=== PATIENT | female | born 1945 | race Caucasian/White ===

== ENCOUNTER 2022-07-28 10:46 | Day surgery (SDC) | payer OTHER ==
[2022-07-28 10:33] LABS: Hematocrit 31.2 % (36.0-45.0); MCV 94.8 fL (80-100); RBC Red Blood Cell Count 3.29 M/uL (3.86-4.86)
--- NOTE | 2022-07-28 10:47 | RAD REPORT ---
EXAM DESCRIPTION: RAD - Chest Pa And Lat (2 Views) - 07/28/2022 10:36 am CLINICAL HISTORY: pre op for surgery Chest pain. COMPARISON: Chest Pa And Lat (2 Views) dated 08/20/2021; Chest Single View dated 10/02/2016 TECHNIQUE: PA and lateral views of the chest were obtained. FINDINGS: The lungs are hyperexpanded compatible with COPD. The heart is upper limit of normal in si ze. No fracture or aggressive bony process. IMPRESSION: COPD without acute process identified. The USPSTF recommends annual screening for lung cancer with low-dose CT (LDCT) in adults aged 50 to 80 years who have a 20 pack-year smoking history and currently smoke or have quit within the past 15 years.
[2022-07-28 10:52] LABS: Potassium 4.2 mmol/L (3.5-5.1)
[2022-07-28] MEDS ORDERED: Ringers Lactate 1,000 ML IV ONE (11:09)
[2022-07-28 11:26] VITALS: O2SAT 100
[2022-07-28] MEDS ORDERED: LIDOCAINE 1% W/EPI 1:100,000 30 ML VIAL ONE (11:55)
[2022-07-28] MEDS ORDERED: CEFAZOLIN SODIUM 1 GM/VIAL ONE (12:33)
[2022-07-28] MEDS ORDERED: FENTANYL CITR 100 MCG/2 ML ONE (12:37)
[2022-07-28] MEDS ORDERED: propofoL 200 MG/20 ML VIAL IV ONE (12:38)
[2022-07-28] MEDS ORDERED: LIDOCAINE 2% MPF 5 ML VIAL ONE (12:38)
[2022-07-28] MEDS ORDERED: ONDANSETRON 4 MG/2 ML VIAL ONE (12:52)
[2022-07-28] MEDS ORDERED: dexAMETHasone 10 MG/ML VIAL ONE (12:54)
--- NOTE | 2022-07-28 13:24 | P.BOP ---
Preoperative diagnosis: temporal arteritis Postoperative diagnosis: same Primary procedure: Temporal artery biopsy Estimated blood loss: <10cc Specimen: artery Findings: as above Anesthesia: General Complications: None Transferred to: Recovery Room Condition: Good
[2022-07-28] MEDS: MEPERIDINE HCL 25 MG/ML SYR ONE ×2 (13:53→13:58)
[2022-07-28 15:10] VITALS: BP 151/72; TEMP 98.1
--- NOTE | 2022-07-28 22:53 | OP ---
Date of Procedure: 07/28/2022 Surgeon: Israel Mirza MD Preoperative Diagnosis: Temporal arteritis. Postoperative Diagnosis: Temporal arteritis. Procedure: Temporal artery biopsy. Anesthesia: General with local. Estimated Blood Loss: Less than 10 cc. Specimen: Artery. Anesthesia: General plus local. Indications: This is the case of a female sent to us by Dr. Miller, Ophthalmology, for temporal ar meri biopsy after onset of visual issues in the right side, tenderness over the temporal artery area. The patient fully explained the benefits, alternatives, and risks of a temporal artery biopsy which include, but not limited to infection, bleeding, damage to adjacent structures, anesthesia complicat ion, negative exploration, ND, and even . She also understands this may not relieve any symptom s. She might need more than one surgical intervention. We have booked this patient as soon as we pelaez ve her in our office, understanding the time constraint. Description Of Procedure: The patient was brought to the operating room, placed in supine position. Anesthesia was given without complication. The patient stated most of the symptoms are on the right side, and so we selected the right side, that she told me in the office and today, once again. Afte r anesthesia was done, then we proceeded to prep and drape the area in usual sterile fashion. We pro ceeded to also use 1% lidocaine over the area without any epinephrine. A Doppler was used to localiz e the artery. An incision was made over the artery on the skin and subcutaneous tissue with a sharp blade. The temporal artery was identified once again with the help of the Doppler in the superficial layers of the superficial temporal fascia. Blunt dissection was done with the help of a hemostat, wilberto barragan to the blood vessel. The dissection proceeded underneath the vessel with a hemostat passed b elow it. The vessel was isolated with the help of a 4-0 silk, passed around in the proximal and dist al portion of the isolated artery. We tied those. The artery was then ligated. We irrigated the ar ea. No bleeding. We proceeded to close the skin in a subcuticular fashion with 3-0 chromic and skin with Dermabond. The patient tolerated the procedure well. Patient was sent to recovery in stable c ondition. HM/MODL Voice ID: [id number] Report ID: [id number]
--- NOTE | 2022-07-28 22:53 | DS ---
Date of Discharge: 07/28/2022 Diagnosis: Temporal arteritis. Procedure: Right temporal artery biopsy. Disposition: Home. Activity: As tolerated. No heavy lifting. Followup: My office in 1 week. Call for appointment at [phone]. She was also advised to follow up with Dr. Miller as soon as possible. Instructions: Keep the area dry for 24 hours, then may take a shower. ROLANDA/ZACH Voice ID: [id number] Report ID: [id number]
--- NOTE | 2022-07-31 17:33 | EKG ---
Test Date: 2022-07-28 Test Time: 10:10:08 Industrial Property Appraiser: FLAQUITA MEASUREMENT RESULTS: Intervals: Rate: 84 GA: 190 QRSD: 94 QT: 346 QTc: 408 [place]: P: 36 GA: 190 QRS: 75 T: 53 INTERPRETIVE STATEMENTS: Normal sinus rhythm with sinus arrhythmia Normal ECG Compared to ECG 10/02/2016 04:57:47 No significant changes Electronically Signed On 07-31-22 17:28:40 RAIL ENGINEER by Ernst Mauro
== END 2022-07-28 14:55 | disposition home or self-care (01) ==
LOC: OR 10:46
PROVIDERS: ATTEND Surgery
PROC: 03BS0ZX Excision of Right Temporal Artery, Open Approach, Diagnostic (ICD-10-PCS; principal; 2022-07-28 12:15)
DX: I70.8 Atherosclerosis of other arteries (principal); E83.59 Other disorders of calcium metabolism; I10 Essential (primary) hypertension; E03.9 Hypothyroidism, unspecified; G91.9 Hydrocephalus, unspecified; Z85.3 Personal history of malignant neoplasm of breast
CPT/HCPCS: 93005; 85025; 80048; 36415; 88305; 71046; 37609; J2704; J2001; J3010; J1100; J2175; J7120; J2405; J0690

== ENCOUNTER 2023-06-20 15:38 | Inpatient (IN) | payer OTHER ==
--- OUTSIDE RECORDS SUMMARY | 2023-06-20 15:53 | XMS REPORT | Continuity of Care Document ---
:1945 Author Organization [facility] t Address [address] [facility]. [address] [place] [address] Care Team Providers Name Role Phone None, None Primary Care Physician Unavailable PHYLICIA PURDY Attending Clinician Unavailable , WAQAS BETTS Attending Clinician Unavailable JESSICA_Bita Attending Clinician Unavailable KATE RIVAS Attending Clinician Unavailable Kate Rivas MD Attending Clinician [phone] RONAL ANGEL F Attending Clinician Unavailable Jenny POSADA Folusho F Attending Clinician Cayla Flanagan RN Attending Clinician Unavailable Antoni Muniz DO Attending Clinician Zain Schaffer MD Attending Clinician ZAIN SCHAFFER Attending Clinician Unavailable Chastity Ramirez MD Attending Clinician Doctor Unassigned, [place] Attending Clinician Unavailable Kathleen Esparza RN Attending Clinician Unavailable Only, Ang Db Test Attending Clinician Unavailable Viki Israle Attending Clinician VIKI DARDEN Attending Clinician Unavailable JESSICA_[place]_Nereida_ Admitting Clinician Unavailable RONAL ANGEL Admitting Clinician Unavailable Zain Schaffer MD Admitting Clinician ZAIN SCHAFFER Admitting Clinician Unavailable Payers Payer Name Policy Type Policy Number Effective Date Expiration Date Sharad orozco [employer] MEDICARE PPO [id number] 2022 00:00:00 [place] B-[place]: [id number] 2012 [employer] 00:00:00 AETNA [id number] MEDICARE PART A [id number] 2012 \T\ B 00:00:00 [employer]ET[employer] INDEMNITY [id number] 2014 00:00:00 Problems Condition Condition Condition Status Onset Resolution Last Treating Co mments Source Name Details Category Date Date Treatment Clinician Date Malignant Malignant Disease Active 2022-08 [facility] neoplasm neoplasm 0-10 Health of breast of breast 00:00: 00 CSF leak CSF leak Disease Active 2022-08 [facility] 0-10 Health 00:00: 00 Diplopia Diplopia Disease Active 2022-08 [facility] 0-10 Health 00:00: 00 Hyperlipid Hyperlipid Disease Active 2022-08 U T emia emia 0-10 Health 00:00: 00 Hypertensi Hypertensi Disease Active 2022-08 U T on on 0-10 Health 00:00: 00 Hypothyroi Hypothyroi Disease Active 2022-08 U T dism dism 0-10 Health 00:00: 00 Unsteady Unsteady Disease Active 2022-08 [facility] gait gait 0-10 Health 00:00: 00 BODY WORK 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 TRIMMER BODY WORK AUTO TRIMMER Disease Active 2022-08 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 He alth operitonea operitonea 00:00: l) shunt l) shunt 00 status status Nonspecifi Nonspecifi Disease Active U T c abnormal c abnormal 02-27 He alth results of results of 00:00: function function 00 study of study of kidney kidney Proteinuri Proteinuri Disease Recurre [facility] a a nce Health 00:00: 00 COVID COVID Disease Active 2020-08 [facility] 2-03 Health 00:00: 00 SUBDURAL SUBDURAL Diagnosis Active 2016-10-02 Memoria HEMORRHAGE HEMORRHAGE 10-02 08:34:00 l Active 00:00: Glenvil 10/02/2016 00 [facility] TSDH,S/P TSDH,S/P Diagnosis Active 2017-10-06 Memoria FALL FALL 10-02 11:26:00 l Active 00:00: Glenvil 10/02/2016 00 [facility] Total knee Total knee Disease Active U T replacemen replacemen 4-18 He alth t status t status 00:00: 00 Chronic Chronic Disease Active [facility] pain of pain of 09-03 Health left knee left knee 00:00: 00 [id number]/622 Diagnosis Active 2010-082011-06-01 Memoria 3 BODY WORK AUTO TRIMMER SHUNT 23 BODY WORK AUTO TRIMMER 0-12 11:50:00 l PLACEMENT SHUNT 00:00: Glenvil PLACEMENT 00 Active 05/19/2011 [facility] [id number]/[id number] Diagnosis Active 2010-082011-06-02 Memoria 3 BODY WORK AUTO TRIMMER SHUNT 23 BODY WORK AUTO TRIMMER 0-12 09:21:00 l PLACEMENT, SHUNT 00:00: Manish nuñez POST-OP PLACEMENT, 00 POST-OP Active 05/19/2011 [facility] Breast Breast Problem Active 2011-06-04 Frankie farheen cancer cancer 08:22:59 l Active Ricardo Problem 06/04/2011 [facility] Hypertensi Hypertens Problem Active 2011-06-04 Memoria on ion Active 08:22:59 l Problem Ricardo 06/04/2011 [facility] BODY WORK AUTO TRIMMER shunt BODY WORK AUTO TRIMMER shunt Problem Active 2011-06-04 Memoria Active 08:22:59 l Problem Ricardo 06/04/2011 [facility] 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 Glenvil device device (physical (physical object) object) Active Problem 10/17/2016 [facility], OPID Ricardo 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 L 09:21:00 l AZUCENA HYDROCEPHA Manish n AZUCENA Active [place] TRAUM TRAUM Diagnosis Active 2017-10-06 Me moria SUBDR HEM SUBDR HEM 11:26:00 l W LOC OF W LOC OF Manish n UNSP UNSP DURATION, DURATION, Active [facility] Hydrocepha Hydroceph Problem Resolve 2016-10-17 Memhenok azucena alus d 03:39:15 l (disorder) (disorder) He rmann Resolved Problem 10/17/2016 [facility] MARIS Silva Osteoarthr Osteoarth Problem Resolve 2016-10-17 Memoria itis ritis d 03:39:15 l (disorder) (disorder) He rmann Resolved Problem 10/17/2016 [facility], OPID Glenvil Allergies, Adverse Reactions, Alerts This patient has no known allergies or adverse reactions. Social History Social Habit Start Date Stop Date Quantity Comments Source Sexual orientation [facility] Alcohol intake 2023-03-23 2023-03-23 Ex-drinker [facility] 00:00:00 00:00:00 (finding) History of Social 2023-03-23 2023-03-23 [facility] 00:00:00 00:00:00 Exposure to 2023-01-09 2023-01-19 Not sure [facility] SARS-CoV-2 (event) 00:00:00 11:01:00 Tobacco use and 2023-01-19 2023-01-19 Smokeless [facility] exposure 00:00:00 00:00:00 tobacco non-user Education 2021-07-10 2021-07-[address] [place] [address] 00:00:00 00:00:00 [facility] Social History 2016-10-02 2016-10-02 [facility] Amanda page 21:36:35 21:36:35 Sex [birth year] [facility] 00:00:00 00:00:00 Smoking Status Start Date Stop Date Source Never smoked tobacco [facility] Medications Ordered Filled Start Stop Current Ordering Indication Dosage Frequency Signature Comments Components Source Medication Medication Date Date Medication? Clinician (SIG) Name Name levothyroxi Yes [facility] ne 5-24 Health (Synthroid, 00:00: Levoxyl) 00 100 MCG tablet levothyroxi Yes [facility] ne 5-24 Health (Synthroid, 00:00: Levoxyl) 00 100 MCG tablet levothyroxi Yes [facility] ne 5-24 Health (Synthroid, 00:00: Levoxyl) 00 100 MCG tablet levothyroxi 0 Yes UT ne 12-07 Health (Synthroid, 00:00: Levoxyl) 88 00 MCG tablet lisinopril 0 Yes UT 5 MG tablet 12-07 Health 00:00: 00 levothyroxi 0 Yes UT ne 12-07 Health (Synthroid, 00:00: Levoxyl) 88 00 MCG tablet lisinopril 0 Yes UT 5 MG tablet 12-07 Health 00:00: 00 levothyroxi 0 Yes UT ne 12-07 Health (Synthroid, 00:00: Levoxyl) 88 00 MCG tablet lisinopril 0 Yes UT 5 MG tablet 12-07 Health 00:00: 00 traMADoL 50 Yes [id number] 50mg Take 1 Univ ers mg tablet 12-12 tablet by ity o f 00:00: mouth [place] 00 every 6 Medical (six) Branch hours as needed for Pain (scale 7-10). Indication s: acute pain naproxen Yes [id number] 500mg Take 1 Univers 500 mg 5-07 001242 tablet by ity of tablet 00:00: mouth 2 [place] 00 (two) Medical times Branch daily with meals. cholecalcif 2020-08 Yes [id number] 2000U Take 2 Univers ashleigh, 2-06 tablets by ity of vitamin D3, 00:00: mouth [place] 25 mcg 00 daily. Medical (1,000 Branch unit) tablet MULTIVITAMI 2020-08 Yes 1{tbl} Take 1 Tab Univers N WITH 2-05 by mouth ity of MINERALS 11:46: daily. [place] (MULTIVITAM 15 Medical IN & Branch MINERAL FORMULA ORAL) levothyroxi 2020-08 Yes 88ug Take 88 Uni vers ne 2-05 mcg by ity of (SYNTHROID) 11:46: mouth [place] 88 mcg 15 daily. Medical tablet Branch BETA-CAROTE 2020-08 Yes 1{tbl} Take 1 Un awilda NE,A, W-C & 2-05 tablet by ity of E/MIN 11:46: mouth [place] (VISION 15 daily. Medical ORAL) Branch cyanocobala 2020-08 Yes [id number] Inject 1 Univers min 1,000 2-05 mL SQ once ity of mcg/mL 00:00: daily x 5 [place] injection 00 days then Medic al once Branch weekly ondansetron 2020-08 Yes [id number] 4mg Take 1 Univers (ZOFRAN 2-05 tablet by ity of ODT) 4 mg 00:00: mouth [place] disintegrat 00 every 6 Medic al ing tablet (six) Branch hours as needed for Nausea and Vomiting (N/V). acidophilus 2020-08 Yes [id number] 1g Take 1 Univers 100 million 2-05 tablet by ity of cell tablet 00:00: mouth 2 [place] as 00 (two) Medical times Branch daily. Levetiracet Yes 500 mg = 1 Memoria am 500 MG 2-26 tab, PO, l Oral Tablet 16:31: BID, # 12 H ermann [Keppra] 50 tab, 0 Refill(s) Levetiracet No 500 mg = 1 Memoria am 500 MG 2-26 tab, PO, l Oral Tablet 16:30: BID, # 12 H ermann [Keppra] 00 tab, 0 Refill(s) Lisinopril No Notes: Memor ia 2-26 (Same as: l 15:00: Prinivil, Glenvil 00 Zestril) Thyroxine No Notes: Memori a 2-26 Take 1 l 12:30: hour Ricardo 00 before or 2 hours after meal; Enteral feeds may interefere with the absorption of this medication . (Same as:Synthro id) Sodium No 1 appl, Memoria Chloride 2-25 Route: l 0.111 23:00: NASAL, Ricardo MEQ/ML 00 TID, Drug Nasal [place] form: [[place] SOLN, brand of Start sodium date: chloride] 10/02/16 17:00:00 MAT REPAIRER, Duration: 30 day, Stop date: 11/01/16 13:00:00 CDT levothyroxi Yes 88 Memori a ne 88 mcg 2-25 microgram l (0.088 mg) 21:42: = 1 tab, Her merchant oral tablet 00 PO, Daily, 0 Refill(s) meloxicam Yes 7.5 mg = 1 Me moria 7.5 mg oral 2-25 tab, PO, l tablet 21:42: Daily, 0 Ricardo 00 Refill(s) lisinopril Yes 10 mg = 1 Me moria 10 mg oral 2-25 tab, PO, l tablet 21:42: Daily, 0 Refill(s) Oxymetazoli No Notes: Frankie farheen ne 2-25 (Same as: l hydrochlori 21:36: Afrin) Herm temo de 0.5 00 MG/ML Nasal [place] [Afrin] tramadol No 50 mg, Memoria hydrochlori 2-25 Route: PO, l de 50 MG 18:45: Drug form: Her merchant Oral Tablet 00 TAB, ONCE, Dosing Weight 106.364, kg, Priority: STAT, Start date: 10/02/16 12:45:00 MAT REPAIRER, Stop date: 10/02/16 12:45:00 MAT REPAIRER Saline No Notes: Memoria Flush 0.9% 2-25 (Same as: l 15:00: BD Posiflush) Levetiracet No Notes: Frankie farheen am 2-25 Same as l 15:00: Keppra Mix with 100 mL NS, LR or D5W MEDICATION WASTE Product Size: 500 mg Product Wasted: ___ mg sennosides, No Notes: Frankie farheen ASSISTED 2-25 (Same as: l 15:00: Senokot) Docusate No Notes: Memoria 2-25 (Same as: l 15:00: Colace) (Do Not Crush) Saline No Notes: Memoria Flush 0.9% 2-25 (Same as: l 13:09: BD Ricardo 00 Posiflush) Ondansetron No Notes: Frankie farheen 2-25 (Same as: l 13:09: Zofran) MEDICATION WASTE Product Size: 4 mg Product Wasted: ___ mg Bisacodyl No Notes: Memori a 2-25 (Same As: l 13:09: Dulcolax, Ricardo 00 Bisco-Lax) Sodium No 1,000 mL, Memori a Chloride 2-25 Rate: 75 l 0.154 13:09: ml/hr, Ricardo MEQ/ML 00 Infuse Injectable over: 13.3 Solution hr, Route: IV, Dosing Weight 106.364 kg, Total Volume: 1,000, Start date: 10/02/16 7:09:00 MAT REPAIRER, Duration: 30 day, Stop date: 11/01/16 7:08:00 CDT Acetaminoph No Notes: Do M emoria en 2-25 not exceed l 13:09: 4 gm/day. Ricardo (Same as: Tylenol) Acetaminoph No Notes: Frankie farheen en 325 MG / 2-25 (Same as: l Hydrocodone 13:09: Delevan Mica nn Bitartrate 00 325/5) Do 5 MG Oral not exceed Tablet 4gm/day of acetaminop hen. Acetaminoph No Notes: Do M emoria en 325 MG / 2-25 not exceed l Hydrocodone 13:09: 4gm/day of Ricardo Bitartrate 00 acetaminop 10 MG Oral hen. (Same Tablet as: Delevan 325/10) Keppra No 1,000 mg, Memori a 2-25 Route: IV, l 13:04: ONCE, Ricardo Dosing Weight 106.364, kg, Start date: 10/02/16 7:04:00 MAT REPAIRER, Stop date: 10/02/16 7:04:00 MAT REPAIRER lisinopril Yes 5mg Take 5 mg Un awilda (PRINIVIL,Z 9-19 by mouth ity of ESTRIL) 5 00:00: daily. [place] mg tablet 00 Medical Branch Diamox 2010-08 Lucero Browne 250 mg, 1 Kassandra ia Sequels 0-26 Sabino tab, l 14:00: Bonnen Route: PO, Mica nn 00 Drug form: TAB, Daily, Start date: 06/02/11 9:00:00, Duration: 30 day, Stop date: 07/01/11 9:00:00 Hemocyte 2010-08 Lucero Browne 1 tab, Memori a Plus 0-26 Sabino Route: PO, l 14:00: Bonnen Drug Form: Mica nn 00 TAB, Daily, Start date: 06/02/11 9:00:00, Duration: 30 day, Stop date: 07/01/11 9:00:00 Iron 2010-08 No Puneet Iron Memoria glycinate 0-26 Sabino glycinate l with folic 14:00: Bonnen with folic Ricardo acid 00 acid, 1 capsule, Route: PO, Daily, 06/02/11 9:00:00, Duration: 30 day, Stop date: 07/01/11 9:00:00 lisinopril 2010-08 No Puneet 20 mg, Frankie farheen 0-26 Sabino Route: PO, l 14:00: Bonnen Drug form: Mica nn 00 TAB, Daily, Start date: 06/02/11 9:00:00, Duration: 30 day, Stop date: 07/01/11 9:00:00 Prinivil 2010-08 No Puneet 20 mg, 1 Frankie farheen 0-26 Sabino tab, l 14:00: Bonnen Route: PO, Mica nn 00 Drug form: TAB, Daily, Start date: 06/02/11 9:00:00, Duration: 30 day, Stop date: 07/01/11 9:00:00 levothyroxi 2010-08 No Puneet 0.137 mg, Memoria ne 0-26 Sabino Route: PO, l 14:00: Bonnen Drug form: Mica nn 00 TAB, Daily, Start date: 06/02/11 9:00:00, Duration: 30 day, Stop date: 07/01/11 9:00:00 acetaZOLAMI 2010-08 No Puneet 250 mg, Me moria DE 0-26 Sabino Route: PO, l 14:00: Bonnen Drug form: Mica nn 00 TAB, Daily, Start date: 06/02/11 9:00:00, Duration: 30 day, Stop date: 07/01/11 9:00:00 Levothroid 2010-08 No Puneet 0.137 mg, M emoria 0-26 Sabino 1 tab, l 11:30: Bonnen Route: PO, Mica nn 00 Drug form: TAB, Q630AM, Start date: 06/02/11 6:30:00, Duration: 30 day, Stop date: 07/01/11 6:30:00 Zocor 2010-08 No Puneet 40 mg, 1 Memoria 0-26 Sabino tab, l 02:00: Bonnen Route: PO, Mica nn 00 Drug form: TAB, Bedtime, Start date: 06/01/11 21:00:00, Duration: 30 day, Stop date: 06/30/11 21:00:00 simvastatin 2010-08 No Puneet 40 mg, Mem oria 0-26 Sabino Route: PO, l 02:00: Bonnen Drug form: Mica nn 00 TAB, Bedtime, Start date: 06/01/11 21:00:00, Duration: 30 day, Stop date: 06/30/11 21:00:00 diphenhydrA 2010-08 No Puneet 25 mg, 1 M emoria MINE 25 mg 0-25 Sabino tab, l oral 21:26: Bonnen Route: PO, Mica nn tablet, 00 Drug form: disintegrat TAB, ing Bedtime, PRN Insomnia, Start date: 06/01/11 16:26:00, Duration: 30 day, Stop date: 07/01/11 16:25:00 Benadryl 2010-08 No Puneet 25 mg, 1 Frankie farheen 0-25 Sabino tab, l 21:00: Bonnen Route: PO, Mica nn 00 Drug form: TAB, PRN, PRN Insomnia, Start date: 06/01/11 16:00:00, Duration: 30 day, Stop date: 07/01/11 14:59:00 BD 2010-08 No Puneet 3 mL, Memoria Posiflush 0-25 Sabino Route: IV, l SF 21:00: Bonnen Drug Form: Mica nn 00 INJ, Q8H, Start date: 06/01/11 16:00:00, Duration: 30 day, Stop date: 07/01/11 8:00:00 Zofran 2010-08 No Puneet 10 mg, 5 Memori a 0-25 Sabino mL, Route: l 20:01: Bonnen IVPB, Q6H, Mica nn 00 PRN Nausea, Start date: 06/01/11 15:01:00, Duration: 30 day, Stop date: 07/01/11 15:00:00 acetaminoph 2010-08 No Puneet 2 tab, Mem oria en-hydrocod 0-25 Sabino Route: PO, l one 20:00: Bonnen Drug Form: Mica nn 00 TAB, Q4H, PRN Pain, Start date: 06/01/11 15:00:00, Duration: 30 day, Stop date: 07/01/11 14:59:00 morphine 2010-08 No Puneet 4 mg, 2 Memor ia Sulfate 0-25 Sabino mL, Route: l 20:00: Bonnen IVP, Drug Manish n 00 form: INJ, Q1H, PRN Pain, Start date: 06/01/11 15:00:00, Stop date: 06/03/11 14:59:00 morphine 2010-08 No Puneet 3 mg, 1.5 Mem oria Sulfate 0-25 Sabino mL, Route: l 19:59: Bonnen IVP, Drug Manish n 00 form: INJ, Q1H, PRN Pain, Start date: 06/01/11 14:59:00, Stop date: 06/03/11 14:58:00 BD 2010-08 No Puneet 3 mL, Memoria Posiflush 0-25 Sabino Route: IV, l SF 19:59: Bonnen Drug Form: Mica nn 00 INJ, PRN, PRN Line Flush, Start date: 06/01/11 14:59:00, Duration: 30 day, Stop date: 07/01/11 13:58:00 LR IV 1,000 2010-08 No Puneet 1,000 mL, Memoria mL 0-25 Sabino Rate: 75 l 19:30: Bonnen ml/hr, Glenvil 00 Infuse over: 13.3 hr, Route: IV, Total Volume: 1,000, Start date: 06/01/11 14:30:00, Duration: 30 day, Stop date: 07/01/11 14:29:00 Ancef 2010-08 No Puneet 1 gm, Memoria 0-25 Sabino Route: l 12:49: Bonnen IVPB, Ricardo 00 ONCE, Start date: 06/01/11 7:49:00, Duration: 1 doses or times, Stop date: 06/01/11 7:49:00 Lactated 2010-08 No Jake 1,000 mL, Mem oria Ringers IV 0-25 Catalan Rate: 75 l 1000 mL 12:49: ml/hr, Glenvil 00 Infuse over: 13.3 hr, Route: IV, Total Volume: 1,000, Start date: 06/01/11 7:49:00, Duration: 30 day, Stop date: 07/01/11 7:48:00 iron 2010-08 Yes iron Memoria glycinate 0-24 glycinate l with folic 19:36: with folic H ermann acid, 37 acid, vitamin vitamin, 1 capsule, PO, Daily, Substituti on Allowed diphenhydrA 2010-08 Yes 1 tab, PO, Memoria MINE 25 mg 0-24 PRN, 30 l oral tablet 19:35: tabManish 41 Insomnia, Substituti on Allowed, TAB aspirin 81 2010-08 Yes 1 tab, PO, M emoria mg tablet, 0-24 Daily, l enteric 19:34: PRN, 0 Ricardo coated 10 tab, headache, Substituti on Allowed, ECTAB Aleve 220 2010-08 Yes 2 tab, PO, Me moria mg oral 0-24 QID, PRN, l tablet 19:32: 60 Ricardo honeycutt 44 Headache, Substituti on Allowed, TAB acetaZOLAMI 2010-08 Yes 1 tab, PO, Memoria DE 250 mg 0-24 Daily, 30 l oral tablet 19:31: Manish honeycutt n 45 Substituti on Allowed, TAB lisinopril 2010-08 Yes 1 tab, PO, M emoria 20 mg oral 0-24 Daily, 30 l tablet 19:31: Ricardo honeycutt 25 Substituti on Allowed, TAB levothyroxi 2010-08 Yes 1 tab, PO, Memoria ne 137 mcg 0-24 Daily, 90 l (0.137 mg) 19:31: tabRicardo oral tablet 05 Substituti on Allowed, TAB simvastatin 2010-08 Yes 1 tab, PO, Memoria 40 mg oral 0-24 Bedtime, l tablet 19:30: 30 Ricardo honeycutt 42 Substituti on Allowed, TAB Vital Signs Vital Name Observation Time Observation Value Comments Source Systolic blood 2023-03-23 16:35:00 134 mm[Hg] [facility] pressure Diastolic blood 2023-03-23 16:35:00 79 mm[Hg] [facility] pressure Heart rate 2023-03-23 16:35:00 90 /min [facility] Body temperature 2023-03-23 16:35:00 35.94 [facility] Body height 2023-03-23 16:35:00 167.6 cm [facility] Body weight 2023-03-23 16:35:00 83.462 kg [facility] BMI 2023-03-23 16:35:00 29.70 kg/m2 [facility] Systolic blood 2023-01-19 16:44:00 151 mm[Hg] [facility] pressure Diastolic blood 2023-01-19 16:44:00 81 mm[Hg] [facility] pressure Heart rate 2023-01-19 16:44:00 100 /min [facility] Body temperature 2023-01-19 16:44:00 35.78 [facility] Body height 2023-01-19 16:44:00 167.6 cm [facility] Body weight 2023-01-19 16:44:00 83.462 kg [facility] BMI 2023-01-19 16:44:00 29.70 kg/m2 [facility] Body temperature 2021-12-29 15:13:00 36.28 [facility] Body height 2021-12-29 15:13:00 175.3 cm [facility] Body weight 2021-12-29 15:13:00 81.92 kg [facility] BMI 2021-12-29 15:13:00 26.67 kg/m2 [facility] Respitory Rate 2016-10-03 17:00:00 Memori al Ricardo Systolic (mm Hg) 2016-10-03 17:00:00 Frankie rial Ricardo Diastolic (mm Hg) 2016-10-03 17:00:00 Mem orial Glenvil Respitory Rate 2016-10-03 16:00:00 Memori al Glenvil Systolic (mm Hg) 2016-10-03 16:00:00 Frankie rial Ricardo Diastolic (mm Hg) 2016-10-03 16:00:00 Mem orial Glenvil Systolic (mm Hg) 2016-10-03 15:00:00 Frankie rial Ricardo Diastolic (mm Hg) 2016-10-03 15:00:00 Mem orial Glenvil Respitory Rate 2016-10-03 15:00:00 Memori al Ricardo Temperature Oral (F) 2016-10-03 13:00:00 97.9 F Memorial Ricardo Temperature Oral (F) 2016-10-03 10:00:00 97.9 F Memorial Ricardo Temperature Oral (F) 2016-10-03 06:00:00 97.0 F Memorial Ricardo BMI Calculated 2016-10-02 21:32:00 Memori al Ricardo Height 2016-10-02 21:32:00 175.26 cm Memorial Ricardo Weight 2016-10-02 21:32:00 Memorial Ricardo Height 2016-10-02 21:23:00 175.26 cm Memorial Glenvil Weight 2016-10-02 21:23:00 Memorial Glenvil BMI Calculated 2016-10-02 21:23:00 Memori al Ricardo Heart Rate 2016-10-02 12:24:00 Memorial Glenvil Diastolic (mm Hg) 2011-06-02 17:00:00 Mem orial Glenvil Systolic (mm Hg) 2011-06-02 17:00:00 Frankie rial Ricardo Respitory Rate 2011-06-02 17:00:00 Memori al Ricardo Heart Rate 2011-06-02 17:00:00 Memorial Ricardo Temperature Oral (F) 2011-06-02 17:00:00 99.0 F Memorial Ricardo Systolic (mm Hg) 2011-06-02 13:00:00 Frankie rial Glenvil Diastolic (mm Hg) 2011-06-02 13:00:00 Mem orial Ricardo Respitory Rate 2011-06-02 13:00:00 Memori al Glenvil Heart Rate 2011-06-02 13:00:00 Memorial Ricardo Temperature Oral (F) 2011-06-02 13:00:00 98.1 F Memorial Glenvil Diastolic (mm Hg) 2011-06-02 09:00:00 Mem orial Ricardo Systolic (mm Hg) 2011-06-02 09:00:00 Frankie rial Ricardo Respitory Rate 2011-06-02 09:00:00 Memori al Ricardo Heart Rate 2011-06-02 09:00:00 Memorial Ricardo Temperature Oral (F) 2011-06-02 09:00:00 98.6 F Memorial Ricardo Weight 2011-06-01 18:22:00 Memorial Ricardo Height 2011-06-01 18:22:00 175.26 cm Memorial Glenvil Weight 2011-05-31 19:38:00 Memorial Ricardo Height 2011-05-31 19:38:00 175.26 cm [facility] Procedures Procedure Date / Time Performing Source Performed Clinician OCT, OPTIC NERVE - OU - BOTH 2023-05-17 19:16:59 Critical access hospital EYES [facility] VISUAL FIELD - OU - 2023-05-17 19:16:58 Critical access hospital BOTH EYES [facility]re[facility] Ventriculoperitoneal 2010-08-08 00:00:00 Memoria l Glenvil shunt<sup>1</sup> Breast lumpectomy [facility] nn Encounters Start End Encounter Admission Attending Care Care Encounter Source Date/Time Date/Time Type Type Clinicians Facility Department ID 2023-01-19 Outpatient [facility] [id number] [place] 10:56:49 [id number] [facility] 2022-12-15 Outpatient [facility] [id number] [place] 10:12:56 [id number] [facility] 2022-12-01 Outpatient [facility] [id number] [place] 10:05:47 [id number] [facility] 2023-07-08 2023-07-08 Outpatient RAJWINDER, [facility] [id number] [place] 09:00:00 09:00:00 [facility] ATOMI 2023-05-17 2023-05-17 Outpatient [facility] [id number] [place] 13:45:00 13:45:00 Health 2023-05-17 2023-05-17 Outpatient [facility] [id number] [place] 13:20:00 13:20:00 Health 2023-05-17 2023-05-17 Office RAJWINDER, LEONARD 6400 [id number] [place] 13:00:00 13:00:00 Visit [facility] [address] [facility] [id number] Health ATOMI [id number] 2023-03-23 2023-03-23 Office WAQAS OROURKE UTP 6400 [id number] [place] 11:00:00 11:00:[address] [id number] Health [id number] 2023-01-27 2023-01-27 Outpatient MHIE MHIE [id number] Memoria 11:45:00 11:45:00 03 mitch Silva 2023-01-19 2023-01-19 Office DayWaqas 6400 [id number] [place] 11:15:00 12:46:09 Visit Hossein [place] [id number] [facility] [id number] 2023-01-11 2023-01-11 Outpatient FOG_Mathews AOSM AOSM [id number] Yanet 00:00:00 00:00:00 _Nereida_MD [id number] [facility] 2023-01-07 2023-01-07 Outpatient FOG_Mathews AOSM AOSM [id number] Yanet 00:00:00 00:00:00 _Nereida_MD [id number] Orth ope dic Sports Medicin e 2022-12-22 2022-12-22 Outpatient DAY, WAQAS [facility] [id number] [place] 16:00:00 16:00:00 Health 2022-11-26 2022-11-26 Outpatient MHIE MHIE [id number] Memoria 10:45:00 10:45:00 02 mitch Silva 2022-10-15 2022-10-15 Outpatient FOG_Mathews AOSM AOSM [id number] Yanet 00:00:00 00:00:00 _Nereida_MD [id number] Orth ope dic Sports Medicin e 2022-10-13 2022-10-13 Outpatient MHIE MHIE [id number] Memoria 11:15:00 11:15:00 01 mitch Silva 2022-09-01 2022-09-01 Outpatient MHIE MHIE [id number] Memoria 11:15:00 11:15:00 00 mitch Silva 2021-12-29 2021-12-29 [facility] [id number] [facility] 10:05:39 23:59:00 KATE kilpatrick [facility] 2021-12-29 2021-12-29 [facility] [id number] [facility] 10:05:00 23:59:00 Encounter Kate SPECIALTY [id number] ity of [facility] [id number] [facility] AT [id number] Nv ayleen HERNANDEZ 809 [facility] 2021-12-29 2021-12-29 Outpatient R [facility] [id number] Univers 10:15:00 10:56:37 KATE ity [facility] 2021-12-29 2021-12-29 Office [facility] [id number] [facility] 10:15:00 10:56:37 Visit Kate SPECIALTY [id number] ity [place] [id number] [place] [address] AT [phone] Nv ayleen HERNANDEZ 198 [facility] 2021-12-15 2021-12-15 [facility] [id number] Univers 10:00:00 10:08:23 KATE ity of [facility] 2021-12-15 2021-12-15 Office [facility] [id number] Univers 10:00:00 10:08:23 Visit Kate SPECIALTY 350.1.13.10 ity [facility] 4.2.7.2.686 [facility] AT [phone] Nv ayleen HERNANDEZ 198 [facility] 2021-12-12 2021-12-12 [facility] [id number] Univers 18:19:00 21:09:00 FOLUSHO ity of [facility] 2021-12-12 2021-12-12 Emergency [facility] [id number] Univers 18:19:00 21:09:00 Ronal SHIN 350.1.13.10 ity [facility] 4.2.7.2.686 [facility] [phone] [facility] [address] [place] 2021-12-12 2021-12-12 Emergency [facility] [id number] Univers 18:19:00 21:09:00 FOLUSHO ity of [facility] 2021-07-14 2021-07-14 Transition JOSE LUIS Flanagan [id number] Univers 00:00:00 00:00:00 of Care Cayla HIRSCH 350.1.13.10 it [place] [phone] [facility] [address] 2021-07-10 2021-07-12 Hospital Antoni Muniz [facility] 1.2.840.1 [id number] Univers 15:51:00 10:50:00 Encounter DwightguidoFaithrubina SHIN 350.1.13.10 [place] [phone] [facility] [address] [place] 2021-07-10 2021-07-12 Inpatient X KARIME [facility] RINA [id number] Univers 15:51:00 10:50:00 ZAIN itpablo [facility] 2021-07-10 2021-07-10 Telephone James [facility] [id number] Univers 00:00:00 00:00:00 Chastity HEALTH 350.1.13.10 it y of [place] 4.2.7.2.686 Seamus as LONG?BLEA [phone] [address] MEDICAL OFFICE BUILDING 2021-07-10 2021-07-10 Orders Doctor GEOFF 1.2.840.114 [id number] Univers 00:00:00 00:00:00 Only Unassigned, ABBY 350.1.13.10 ity of [place] [facility] 4.2.7.2.686 Se[place] as [phone] [facility] [address] 2021-07-09 2021-07-09 Telephone GEOFF Esparza [id number] Univers 00:00:00 00:00:00 Kathleen MORA 350.1.13.10 it y of [facility] 4.2.7.2.686 [place] as [phone] [facility] [address] 2021-07-08 2021-07-08 Laboratory Only, Ang Db Test [facility] 1.2.8 40.114 [id number] Univers 17:22:42 17:37:42 Only Viki Darden [facility] 350.1.13.10 itGavino 4.2.7.2.686 [place] as LONG?BLEA [phone] Nv ayleen [address] MEDICAL OFFICE BUILDING 2021-07-08 2021-07-08 Outpatient R [facility] [id number] Univers 17:15:00 17:36:36 VIKI kilpatrick o f [facility] 2016-10-14 2016-10-15 Outpt Diag nullFlavo [facility] [id number] Memoria 19:24:00 05:59:00 Services r Outpatient 00 l Imaging [facility] 2016-10-14 2016-10-14 Outpatient [facility] [id number] Memoria 14:00:00 14:00:00 00 [facility] 2016-10-02 2016-10-03 Inpatient nullFlavo [facility] [id number] Memoria 12:23:00 17:27:00 [facility] 56 l [facility] 2011-06-01 2011-06-02 OU nullFlavo [id number] Memoria 11:10:00 15:30:00 r [place] 00 [facility] Results Test Description Test Time Test Comments Results Result Comments Source HEMATOLOGY 2016-10-03 15:29:00 Test Item Value Reference Range Interpretation Comme nts MCV (test code = MCV) 91.0 80.0-98.[address] [facility]xaEHOBBOGTVN5709-22-84 15:29:00 Test Item Value Reference Range Interpretation Comments RDW (test code = RDW) 14.3 11.5-14.[address] [facility]YcbcyjxNBKVYVKGCO5712-56-04 15:29:00 Test Item Value Reference Range Interpretation Comments Platelet (test code = Platelet) 163 133-[address] [facility] HospitalCplqcptUGGIKCREDY2640-40-86 15:29:00 Test Item Value Reference Range Interpretation Comments MCH (test code = MCH) 31.3 pg 27.0-31.[address] [facility] HospitalAjbkjeiSCYCWNOZGM0024-82-52 15:29:00 Test Item Value Reference Range Interpretation Comments MCHC (test code = MCHC) 34.4 32.0-36.[address] [facility] HospitalPyuqcbhIEPWHKTRFI5246-16-43 15:29:00 Test Item Value Reference Range Interpretation Comments MPV (test code = MPV) 8.7 7.4-10.[address] [facility] HospitalEkgkypxFMDFYAULYT9965-53-50 15:29:00 Test Item Value Reference Range Interpretation Comments RBC (test code = RBC) 3.38 4.20-5.[address] [facility]XglffogDGFYCKCGAS2524-13-54 15:29:00 Test Item Value Reference Range Interpretation Comments Hgb (test code = Hgb) 10.6 12.0-16.[address] [facility] HospitalQngdqvwZZPOEQRCJF5905-55-84 15:29:00 Test Item Value Reference Range Interpretation Comments WBC (test code = WBC) 7.1 3.7-10.[address] [facility] HospitalHjpgsbhPVAAXEEDSJ7381-59-59 15:29:00 Test Item Value Reference Range Interpretation Comments Hct (test code = Hct) 30.8 36.0-48.0 [place] 976817-02-26 06:46:00 Test Item Value Reference Range Interpretation Comments Monocytes # (test code 0.8 See_Comment [Aut omated message] The = Monocytes #) system which generated this result tra nsmitted reference range : <=0.8. The reference r nelsy was not used to int erpret this result as normal/abnormal . [facility] HospitalDifiidbFIUIHYGFAA0179-08-31 06:46:00 Test Item Value Reference Range Interpretation Comments Lymphocytes # (test code = Lymphocytes 1.3 1.0-5.5 #) [facility] HospitalSuctpefRQCMSRZJGK5612-38-15 06:46:00 Test Item Value Reference Range Interpretation Comments Segs-Bands # (test code = Segs-Bands #) 3.4 1.5-8.[address] [facility] HospitalAabfxksPBRJRWNJPD2599-67-97 06:46:00 Test Item Value Reference Range Interpretation Comments Monocytes (test code = Monocytes) 13.6 2.0-12.[address] [facility] HospitalMorsjptEDTYATEJXG2916-33-49 06:46:00 Test Item Value Reference Range Interpretation Comments Eosinophils (test code = 3.4 See_Comment [A utomated message] The Eosinophils) system which ge nerated this result tra nsmitted reference range : <=4.0. The reference r nelsy was not used to int erpret this result as normal/abnormal . [facility] HospitalIceeeuoHEYHGOKEPG1289-72-51 06:46:00 Test Item Value Reference Range Interpretation Comments Basophils (test code = 0.5 See_Comment [Aut omated message] The Basophils) system which ge nerated this result tra nsmitted reference range : <=1.0. The reference r nelsy was not used to int erpret this result as normal/abnormal . [facility] HospitalOdbyrriXWZZXMLGXM2459-96-13 06:46:00 Test Item Value Reference Range Interpretation Comments Segs (test code = Segs) 59.5 45.0-75.[address] [facility] HospitalLtmiabdMXTKHTDGGH0882-71-51 06:46:00 Test Item Value Reference Range Interpretation Comments Lymphocytes (test code = Lymphocytes) 23.0 20.0-40.0 [facility]2017-02-26 06:46:00 Test Item Value Reference Range Interpretation Comments eGFR (test code = eGFR) 71 [facility]2017-02-26 06:46:00 Test Item Value Reference Range Interpretation Comments Calcium Lvl (test code = Calcium Lvl) 9.3 8.5-10.5 [facility]2017-02-26 06:46:00 Test Item Value Reference Range Interpretation Comments Potassium Lvl (test code = Potassium 4.2 3.5-5.1 Lvl) [facility]2017-02-26 06:46:00 Test Item Value Reference Range Interpretation Comments Sodium Lvl (test code = Sodium Lvl) 144 135-145 [facility]2017-02-26 06:46:00 Test Item Value Reference Range Interpretation Comments Creatinine Lvl (test code = Creatinine 0.84 0.50-1.40 Lvl) [facility]2017-02-26 06:46:00 Test Item Value Reference Range Interpretation Comments Chloride Lvl (test code = Chloride Lvl) 112 95-109 [facility]2017-02-26 06:46:00 Test Item Value Reference Range Interpretation Comments CO2 (test code = CO2) 25 24-32 [facility]2017-02-26 06:46:00 Test Item Value Reference Range Interpretation Comments Glucose Lvl (test code = Glucose Lvl) 104 70-99 [facility]2017-02-26 06:46:00 Test Item Value Reference Range Interpretation Comments BUN (test code = BUN) 22 7-22 [facility]2017-02-26 06:46:00 Test Item Value Reference Range Interpretation Comments AGAP (test code = AGAP) 11.2 10.0-20.0 [facility] WEYYL2383-75-31 06:46:00 Test Item Value Reference Range Interpretation Comments Phosphorus (test code = Phosphorus) 3.1 2.5-4.5 [facility] BUQMR8889-41-83 06:46:00 Test Item Value Reference Range Interpretation Comments Magnesium Lvl (test code = Magnesium 2.3 1.8-2.4 Lvl) [facility] HospitalZtupmqkLKBFVHNNVS0901-18-85 06:46:00 Test Item Value Reference Range Interpretation Comments WBC (test code = WBC) 5.7 3.7-10.[address] [facility] HospitalZrtuglyNECDDLGLZZ0337-30-70 06:46:00 Test Item Value Reference Range Interpretation Comments RBC (test code = RBC) 2.97 4.20-5.[address] [facility] HospitalAifuihsUOVUYYTHPS1350-24-61 06:46:00 Test Item Value Reference Range Interpretation Comments MCH (test code = MCH) 31.7 pg 27.0-31.[address] [facility] HospitalWnvehuhSBSEFOZANS8529-21-89 06:46:00 Test Item Value Reference Range Interpretation Comments MCV (test code = MCV) 91.8 80.0-98.[address] [facility] HospitalSaxnyklVNKIWEKZBW7412-93-69 06:46:00 Test Item Value Reference Range Interpretation Comments Hgb (test code = Hgb) 9.4 12.0-16.[address] [facility] HospitalDhovdbuWEQUVYDHIO5554-54-73 06:46:00 Test Item Value Reference Range Interpretation Comments MPV (test code = MPV) 9.1 7.4-10.[address] [facility] HospitalHsmdjvvHZSJTOMJTP0675-72-60 06:46:00 Test Item Value Reference Range Interpretation Comments Hct (test code = Hct) 27.3 36.0-48.[address] [facility] HospitalDzxnitiRVZZPZVBAO1007-50-95 06:46:00 Test Item Value Reference Range Interpretation Comments Platelet (test code = Platelet) 154 133-[address] [facility] HospitalZdppvilUPKHTTOGZX9585-18-90 06:46:00 Test Item Value Reference Range Interpretation Comments MCHC (test code = MCHC) 34.6 32.0-36.[address] [facility] HospitalKsquzihIDNEENIMZH5983-50-52 06:46:00 Test Item Value Reference Range Interpretation Comments RDW (test code = RDW) 14.8 11.5-14.5 [facility]MzivthkZXJXYDPTRP1835-19-54 06:46:00 Test Item Value Reference Range Interpretation Comments Eosinophils # (test code 0.2 See_Comment [A utomated message] The = Eosinophils #) system whic h generated this result tra nsmitted reference range : <=0.5. The reference r nelsy was not used to int erpret this result as normal/abnormal . [facility] ONKLKII9113-75-69 13:57:00 Test Item Value Reference Range Interpretation Comments Antibody Scrn (test Negative (10/02/16 7:57 code = Antibody Scrn) AM) [facility] ELHFRMX1056-19-08 13:57:00 Test Item Value Reference Range Interpretation Comments ABO/Rh (test code = ABO/Rh) A POS [facility] [id number] 12:52:00 Test Item Value Reference Range Interpretation Comments eGFR (test code = eGFR) 59 [facility] BSKVW4989-88-38 12:52:00 Test Item Value Reference Range Interpretation Comments BUN (test code = BUN) 28 - [facility] JXKZX7340-85-98 12:52:00 Test Item Value Reference Range Interpretation Comments Creatinine Lvl (test code = Creatinine 0.98 0.50-1.40 Lvl) [facility] [id number] 12:52:00 Test Item Value Reference Range Interpretation Comments Sodium Lvl (test code = Sodium Lvl) 141 135-145 [facility] QEJEL2838-37-47 12:52:00 Test Item Value Reference Range Interpretation Comments Calcium Lvl (test code = Calcium Lvl) 9.9 8.5-10.5 [facility] YUIMQ8102-00-23 12:52:00 Test Item Value Reference Range Interpretation Comments Potassium Lvl (test code = Potassium 4.3 3.5-5.1 Lvl) [facility] VCOPL2319-79-83 12:52:00 Test Item Value Reference Range Interpretation Comments CO2 (test code = CO2) - [facility] TWRWV9181-31-16 12:52:00 Test Item Value Reference Range Interpretation Comments Chloride Lvl (test code = Chloride Lvl) 107 95-109 [facility] [id number] 12:52:00 Test Item Value Reference Range Interpretation Comments Glucose Lvl (test code = Glucose Lvl) 111 70-99 [facility]2017-02-25 12:52:00 Test Item Value Reference Range Interpretation Comments AGAP (test code = AGAP) 13.3 10.0-20.[address] [facility]XhbcrzkELYUZULPFK4399-54-98 12:52:00 Test Item Value Reference Range Interpretation Comments INR (test code = INR) 1.03 0.85-1.[address] [facility]HbnkttpATQAHXWNHH6258-98-43 12:52:00 Test Item Value Reference Range Interpretation Comments PT (test code = PT) 13.7 s 12.0-14.[address] [facility] HospitalBspsekwJTQHUZLDHH6365-86-26 12:52:00 Test Item Value Reference Range Interpretation Comments PTT (test code = PTT) 27.8 s 22.9-35.[address] [facility] HospitalAluogknETWRJYDAKM6996-72-89 12:52:00 Test Item Value Reference Range Interpretation Comments Monocytes # (test code 0.9 See_Comment [Aut omated message] The = Monocytes #) system which generated this result tra nsmitted reference range : <=0.8. The reference r nelsy was not used to int erpret this result as normal/abnormal . [facility] HospitalRvjadllKBFIBECTJL5558-56-57 12:52:00 Test Item Value Reference Range Interpretation Comments Eosinophils (test code = 1.9 See_Comment [A utomated message] The Eosinophils) system which ge nerated this result tra nsmitted reference range : <=4.0. The reference r nelsy was not used to int erpret this result as normal/abnormal . [facility] HospitalMdgbocqBRVWUBZORF0014-24-78 12:52:00 Test Item Value Reference Range Interpretation Comments Segs-Bands # (test code = Segs-Bands #) 5.7 1.5-8.[address] [facility] HospitalEgknkxfRUIFJZINAR7852-32-04 12:52:00 Test Item Value Reference Range Interpretation Comments Basophils (test code = 0.4 See_Comment [Aut omated message] The Basophils) system which ge nerated this result tra nsmitted reference range : <=1.0. The reference r nelsy was not used to int erpret this result as normal/abnormal . [facility] HospitalKkjmwncBGIGDCFKLQ7866-46-11 12:52:00 Test Item Value Reference Range Interpretation Comments Lymphocytes # (test code = Lymphocytes 1.5 1.0-5.5 #) [facility] HospitalZdvnrddZKOFQGGGQA1469-94-78 12:52:00 Test Item Value Reference Range Interpretation Comments Lymphocytes (test code = Lymphocytes) 18.3 20.0-40.[address] [facility] HospitalXhbwocjKXYPPLEOHU5377-78-98 12:52:00 Test Item Value Reference Range Interpretation Comments Monocytes (test code = Monocytes) 10.7 2.0-12.[address] [facility] HospitalLhqqveuXSBLAFFVEN9543-42-62 12:52:00 Test Item Value Reference Range Interpretation Comments Segs (test code = Segs) 68.7 45.0-75.[address] [facility] HospitalDjmjujyGGHCDKWOXY1510-99-77 12:52:00 Test Item Value Reference Range Interpretation Comments Eosinophils # (test code 0.2 See_Comment [A utomated message] The = Eosinophils #) system whic h generated this result tra nsmitted reference range : <=0.5. The reference r nelsy was not used to int erpret this result as normal/abnormal . [facility] HospitalYanfiyfTFQRIKRUEY0518-54-51 12:52:00 Test Item Value Reference Range Interpretation Comments R-time Rapid (test code = R-time 0.6 min 0.4-0.7 Rapid) [facility] HospitalWavaoogPDSSGDFNRZ1933-51-23 12:52:00 Test Item Value Reference Range Interpretation Comments Split Point Rapid (test code = Split 0.4 min Point Rapid) [facility] HospitalQbxmzayZNUHKROHUU4795-15-36 12:52:00 Test Item Value Reference Range Interpretation Comments Angle Rapid (test code = Angle 80 degrees 64-80 Rapid) [facility] HospitalVdnlnffHOXUEEQQCI9683-50-45 12:52:00 Test Item Value Reference Range Interpretation Comments K-time Rapid (test code = K-time 0.8 min 0.6-2.3 Rapid) [facility] HospitalLgryfigBVNZTIKIVK4337-14-44 12:52:00 Test Item Value Reference Range Interpretation Comments ACT (TEG) Rapid (test code = ACT (TEG) 105 s 86-118 Rapid) [facility] HospitalUtcvjanAFFJIPMFCI7555-61-26 12:52:00 Test Item Value Reference Range Interpretation Comments Estimated % Lysis Rapid 0.0 See_Comment [Au tomated message] The (test code = Estimated syste m which generated % Lysis Rapid) this result t ransmitted reference range : <=7.5. The reference r nelsy was not used to int erpret this result as normal/abnormal . [facility] HospitalIazpsacUVIZRBIGSX9117-56-01 12:52:00 Test Item Value Reference Range Interpretation Comments G-value Rapid (test code = G-value 13.2 5.0-11.6 Rapid) [facility] HospitalFqvgmtsDLPBVAZHEX0421-40-98 12:52:00 Test Item Value Reference Range Interpretation Comments Max Amplitude Rapid (test code = Max 73 mm 52-71 Amplitude Rapid) [facility] HospitalWxbasmfBZKFHJYLVP5453-56-38 12:52:00 Test Item Value Reference Range Interpretation Comments MPV (test code = MPV) 8.9 7.4-10.[address] [facility] HospitalWgjveyuGQMENGSFAA7243-98-05 12:52:00 Test Item Value Reference Range Interpretation Comments Platelet (test code = Platelet) 168 133-[address] [facility] HospitalStsioyyILYJCEHCNX5114-39-59 12:52:00 Test Item Value Reference Range Interpretation Comments MCHC (test code = MCHC) 34.0 32.0-36.[address] [facility] HospitalGxsswwmZGFATJIVIX3593-66-58 12:52:00 Test Item Value Reference Range Interpretation Comments MCH (test code = MCH) 31.4 pg 27.0-31.[address] [facility] HospitalIwslpifHGCVZINLSU4657-83-21 12:52:00 Test Item Value Reference Range Interpretation Comments RDW (test code = RDW) 14.5 11.5-14.[address] [facility] HospitalIfvqydyPHCWFUWLZL5075-76-26 12:52:00 Test Item Value Reference Range Interpretation Comments Hgb (test code = Hgb) 11.3 12.0-16.[address] [facility] HospitalUfrlzxsHGSPSBSMZB3274-91-97 12:52:00 Test Item Value Reference Range Interpretation Comments MCV (test code = MCV) 92.5 80.0-98.[address] [facility] HospitalBfyabqvFYEBOXBUQM8888-97-44 12:52:00 Test Item Value Reference Range Interpretation Comments Hct (test code = Hct) 33.1 36.0-48.[address] [facility] HospitalDioimimQRIYIWESJE7085-60-77 12:52:00 Test Item Value Reference Range Interpretation Comments WBC (test code = WBC) 8.3 3.7-10.[address] [facility] HospitalMvfrpnvDBEYUXYQEM0816-63-70 12:52:00 Test Item Value Reference Range Interpretation Comments RBC (test code = RBC) 3.58 4.20-5.40 [facility] 20:00:00 Test Item Value Reference Range Interpretation Comments Glucose Lvl (test code = Glucose Lvl) 99.0 [facility]QethbeyRNKTIVOTW7751-56-75 20:00:00 Test Item Value Reference Range Interpretation Comments BUN (test code = BUN) 20.0 7-22 N [facility]FejyeawYYABWANAR4913-77-66 20:00:00 Test Item Value Reference Range Interpretation Comments CO2 (test code = CO2) 22.0 24-32 L [facility]AplcoaiHLXBZNPJE1927-78-45 20:00:00 Test Item Value Reference Range Interpretation Comments Sodium Lvl (test code = Sodium Lvl) 140.0 135-145 N [facility]EinxlyqYVAQUMBLC2988-16-86 20:00:00 Test Item Value Reference Range Interpretation Comments Potassium Lvl (test code = Potassium 3.7 3.5-5.1 N Lvl) [facility]CxatjkpZGQFUFXLD5484-90-24 20:00:00 Test Item Value Reference Range Interpretation Comments Creatinine Lvl (test code = Creatinine 0.9 0.5-1.4 N Lvl) [facility]YckktubATWGCHJYA3454-93-82 20:00:00 Test Item Value Reference Range Interpretation Comments Calcium Lvl (test code = Calcium Lvl) 9.3 8.5-10.5 N [facility]WasrauuALLRDCYCK6631-44-10 20:00:00 Test Item Value Reference Range Interpretation Comments Chloride Lvl (test code = Chloride Lvl) 109.0 95-109 N [facility]OwlfemoUFFTHGMUM5055-80-61 20:00:00 Test Item Value Reference Range Interpretation Comments AGAP (test code = AGAP) 12.7 10.0-20.[address] [facility] HospitalErqnakdQZHRXVAODG9025-26-33 20:00:00 Test Item Value Reference Range Interpretation Comments MPV (test code = MPV) 8.7 7.4-10.[address] [facility] HospitalUrmbuieMNJHRBMWIE8253-47-47 20:00:00 Test Item Value Reference Range Interpretation Comments Hgb (test code = Hgb) 10.9 12.0-16.[address] [facility] HospitalAjxksriTFZRCSWUXG3162-10-39 20:00:00 Test Item Value Reference Range Interpretation Comments RBC (test code = RBC) 3.52 4.20-5.[address] [facility] HospitalKpnsjziXRMWXOYVRE5415-24-22 20:00:00 Test Item Value Reference Range Interpretation Comments WBC (test code = WBC) 6.1 3.7-10.[address] [facility] HospitalDdrmyubFWLDHSKOYM0961-22-04 20:00:00 Test Item Value Reference Range Interpretation Comments MCH (test code = MCH) 31.0 pg 27.0-31.[address] [facility] HospitalIqqogwgRWGIDRIWUT8425-58-89 20:00:00 Test Item Value Reference Range Interpretation Comments MCHC (test code = MCHC) 34.1 32.0-36.[address] [facility] HospitalXnbgeuhDEKULTYOCA9709-94-65 20:00:00 Test Item Value Reference Range Interpretation Comments MCV (test code = MCV) 91.1 81.0-99.[address] [facility] HospitalQeejxhoZNJBHCBXVP6823-95-91 20:00:00 Test Item Value Reference Range Interpretation Comments Hct (test code = Hct) 32.1 36.0-48.[address] [facility] HospitalTyndplmWNLYVOYHQP6165-03-58 20:00:00 Test Item Value Reference Range Interpretation Comments Platelet (test code = Platelet) 174.0 133-[address] [facility] HospitalUknyriuLZWKNEAQOL2322-82-58 20:00:00 Test Item Value Reference Range Interpretation Comments RDW (test code = RDW) 18.0 11.5-14.[address] [facility] HospitalTmnjshrHKAGMMABJU8386-40-43 20:00:00 Test Item Value Reference Range Interpretation Comments Eosinophils # (test code 0.1 See_Comment N [A utomated message] The = Eosinophils #) system whic h generated this result tra nsmitted reference range : <=0.5. The reference r nelsy was not used to int erpret this result as normal/abnormal . [facility] HospitalJrqmoccYRGOJQYJJO4449-43-08 20:00:00 Test Item Value Reference Range Interpretation Comments Basophils # (test code 0.0 See_Comment N [Aut omated message] The = Basophils #) system which generated this result tra nsmitted reference range : <=0.2. The reference r nelsy was not used to int erpret this result as normal/abnormal . [facility] HospitalFzxqsgoQABIIEAKUH8356-56-24 20:00:00 Test Item Value Reference Range Interpretation Comments Lymphocytes # (test code = Lymphocytes 1.2 1.0-5.5 N #) [facility] HospitalFygzagbTTLXFJDHKX6790-60-44 20:00:00 Test Item Value Reference Range Interpretation Comments Monocytes # (test code 0.7 See_Comment N [Aut omated message] The = Monocytes #) system which generated this result tra nsmitted reference range : <=0.8. The reference r nelsy was not used to int erpret this result as normal/abnormal . [facility] HospitalIanaoyfOGAXHYYZIJ1380-66-84 20:00:00 Test Item Value Reference Range Interpretation Comments Segs-Bands # (test code = Segs-Bands #) 4.1 1.5-8.[address] [facility] HospitalKgwtablXGTZEPVDLB4459-32-00 20:00:00 Test Item Value Reference Range Interpretation Comments Basophils (test code = 0.3 See_Comment N [Aut omated message] The Basophils) system which ge nerated this result tra nsmitted reference range : <=1.0. The reference r nelsy was not used to int erpret this result as normal/abnormal . [facility] HospitalKireusmQXXCCKVXHX2578-12-75 20:00:00 Test Item Value Reference Range Interpretation Comments Lymphocytes (test code = Lymphocytes) 19.0 20.0-40.[address] [id number] 20:00:00 Test Item Value Reference Range Interpretation Comments Monocytes (test code = Monocytes) 12.2 2.0-12.[address] [id number] 20:00:00 Test Item Value Reference Range Interpretation Comments Eosinophils (test code = 1.0 See_Comment N [A utomated message] The Eosinophils) system which ge nerated this result tra nsmitted reference range : <=4.0. The reference r nelsy was not used to int erpret this result as normal/abnormal . [id number] 20:00:00 Test Item Value Reference Range Interpretation Comments Segs (test code = Segs) 67.5 45.0-75.0 N [facility]
[2023-06-20 16:02] LABS: Absolute Lymphocytes (CBC) 1.8 K/uL (0.7-4.9)
[2023-06-20] MEDS ORDERED: MORPHINE 4 MG/ML SYR ONE (16:13)
--- NOTE | 2023-06-20 16:16 | RAD REPORT ---
EXAM DESCRIPTION: CT - Head C Spine Mpr Wo Con - 06/20/2023 4:01 pm CLINICAL HISTORY: Head and neck injury status post fall. Head and neck pain COMPARISON: 2017 TECHNIQUE: Computed axial tomography of the head and cervical spine was obtained. Sagittal and coronal reconstruction was performed. All CT scans are performed using dose optimization technique as appropriate and may include automated exposure control or mA/KV adjustment according to patient size. 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 Left lateral ventricle is decompressed. An intracranial bleed is not seen. Mild low-density areas within periventricular, deep subcortical white matter likely ischemic changes secondary to small vessel disease. No extra-axial fluid collection noted Fluid within the visualized sinuses and mastoids is not seen A cervical fracture is not visualized. No dislocation is noted. Spondylosis cervical spine IMPRESSION: No acute intracranial abnormality is seen. A cervical fracture is not visualized. If the patient continues to have symptoms to suggest intracranial /spinal cord pathology then MRI wou ld be recommended
[2023-06-20 16:19] LABS: Potassium 4.6 mEq/L (3.5-5.1)
[2023-06-20 16:21] LABS: Hematocrit 29.5 % (36.0-45.0); Lymphocytes % 23.5 % (15.3-44.8); MCV 93.5 fL (80-100); Platelets 155 thou/uL (152-406); RBC Red Blood Cell Count 3.15 M/uL (3.86-4.86)
--- NOTE | 2023-06-20 16:49 | RAD REPORT ---
EXAM DESCRIPTION: RAD - Hip Left 2 View - 06/20/2023 4:34 pm CLINICAL HISTORY: Left hip pain FINDINGS: Bones are osteoporotic. No fracture or dislocation is seen. If patient continues to have symptoms to suggest an occult fracture MRI would be recommended
--- NOTE | 2023-06-20 18:03 | ER ---
Nurse's Notes [facility] Name: Sangeetha Chin Age: 78 yrs Sex: Female : 1945 Arrival Date: 06/20/2023 Time: 15:38 Bed 8 Private MD: Diagnosis: Displaced fracture of base of neck of left femur;Fall on same level, unspecified;Pain in right hip Presentation: 06/20 15:39 Chief complaint: EMS states: "toned out for falling while walking into living room. Pt mb9 hit head on glass door and landed on right hip. Pt denies LOC and does not take blood thinners". Coronavirus screen: Vaccine status: Patient reports receiving the 2nd dose of the covid vaccine. Ebola Screen: No symptoms or risks identified at this time. Initial Sepsis Screen: Does the patient meet any 2 criteria? No. Patient's initial sepsis screen is negative. Does the patient have a suspected source of infection? No. Patient's initial sepsis screen is negative. Risk Assessment: Do you want to hurt yourself or someone else? Patient reports no desire to harm self or others. Onset of symptoms was June 20, 2023. 15:39 Method Of Arrival: EMS: [facility] mb9 15:39 Acuity: PAVITHRA 3 mb9 Historical: - Allergies: 15:41 No Known Allergies; mb9 - Home Meds: 15:41 lisinopril 5 mg Oral tab once daily [Active]; levothyroxine oral once daily [Active]; mb9 - PMHx: 15:41 Arthritis; High Cholesterol; hydrocephelus; Hypertension; Hypothyroidism; mb9 - Immunization history:: Adult Immunizations up to date. - Social history:: Smoking status: Patient denies any tobacco usage or history of. Screenin:12 [facility] ED Fall Risk Assessment (Adult) History of falling in the last 3 months, tm6 including since admission Yes- single mechanical fall (1 pt) Confusion or Disorientation No (0 pts) Intoxicated or Sedated No (0 pts) Impaired Gait No (0 pts) Mobility Assist Device Used No (0 pt) Altered Elimination No (0 pt) Score/Fall Risk Level 0 - 2 = Low Risk. Abuse screen: Denies threats or abuse. Denies injuries from another. Nutritional screening: No deficits noted. Tuberculosis screening: No symptoms or risk factors identified. Assessment: 16:12 General: Appears uncomfortable, Behavior is calm, cooperative. Pain: Complains of pain tm6 in right hip and right leg Pain currently is 5 out of 10 on a pain scale. Quality of pain is described as aching, Is continuous. Neuro: Level of Consciousness is awake, alert, obeys commands, Oriented to person, place, time, situation. Cardiovascular: Capillary refill < 3 seconds Patient's skin is warm and dry. Respiratory: Airway is patent Respiratory effort is even, unlabored, Respiratory pattern is regular, symmetrical. GI: Abdomen is round non-distended. : No signs and/or symptoms were reported regarding the genitourinary system. EENT: No signs and/or symptoms were reported regarding the EENT system. Derm: No signs and/or symptoms reported regarding the dermatologic system. Musculoskeletal: Reports pain in right hip and right leg. 17:07 Reassessment: Patient appears in no apparent distress at this time. Patient and/or tm6 family updated on plan of care and expected duration. Pain level reassessed. Patient is alert, oriented x 3, equal unlabored respirations, skin warm/dry/pink. Patient states feeling better. 17:41 Reassessment: Patient appears in no apparent distress at this time. Patient and/or tm6 family updated on plan of care and expected duration. Pain level reassessed. Patient is alert, oriented x 3, equal unlabored respirations, skin warm/dry/pink. 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 mb9 19:23 General: Appears in no apparent distress. comfortable, Behavior is calm, cooperative. lg3 Pain: Complains of pain in right hip Pain currently is 3 out of 10 on a pain scale. Neuro: No deficits noted. Tripp Agitation-Sedation Scale (RASS): 0 - Alert and Calm Level of Consciousness is awake, alert, obeys commands, Oriented to person, place, time, situation. Cardiovascular: No deficits noted. Denies chest pain, Capillary refill < 3 seconds Clubbing of nail beds is absent JVD is absent Patient's skin is warm and dry. Respiratory: No deficits noted. Airway is patent Respiratory effort is even, unlabored, Respiratory pattern is regular, symmetrical. GI: No deficits noted. No signs and/or symptoms were reported involving the gastrointestinal system. : No deficits noted. Griffith in place to gravity drainage Urine is clear. EENT: No deficits noted. No signs and/or symptoms were reported regarding the EENT system. Derm: No deficits noted. No signs and/or symptoms reported regarding the dermatologic system. Skin is intact, is healthy with good turgor, Skin is dry, Skin is normal, Skin temperature is warm. Musculoskeletal: Circulation, motion, and sensation intact. Range of motion: limited in right hip. 20:05 General: attempted to call report. nurse not available . lg3 Vital Signs: 15:39 BP 161 / 78; Pulse 93; Resp 18; Temp 98.2; Pulse Ox 97% on R/A; Weight 77.11 kg; Height mb9 5 ft. 7 in. ; Pain 10/10; 16:13 BP 152 / 107; Pulse 86; Resp 18; Pulse Ox 98% on R/A; Pain 8/10; ld1 16:25 BP 152 / 107; Pulse 77; Resp 19; Pulse Ox 100% ; Pain 2/10; tm6 16:27 BP 152 / 107; Pulse 77; Resp 19; Pulse Ox 100% ; Pain 2/10; tm6 17:06 BP 142 / 63; Pulse 79; Pulse Ox 99% on R/A; tm6 17:41 BP 135 / 95; Pulse 79; Pulse Ox 98% ; tm6 19:10 BP 115 / 68; Pulse 90; Resp 16 S; Pulse Ox 97% on R/A; lg3 15:39 Body Mass Index 26.63 (77.11 kg, 170.18 cm) mb9 15:39 Pain Scale: Adult mb9 16:13 Pain Scale: Adult ld1 16:25 Pain Scale: Adult tm6 16:27 Pain Scale: Adult tm6 ED Course: 15:39 Patient arrived in ED. mb9 15:39 Leo Suresh DO is Attending Physician. ms3 15:41 Triage completed. mb9 15:41 Arm band placed on. mb9 15:56 CBC with Diff Sent. bc6 15:56 Basic Metabolic Panel Sent. bc6 15:56 Missed attempt(s): 22 gauge in right antecubital area. bc6 16:00 CT Head C Spine In Process Unspecified. EDMS 16:12 Lizzette Queen, RN is Primary Nurse. tm6 16:12 Patient has correct armband on for positive identification. Bed in low position. Call tm6 light in reach. Side rails up X2. Provided Education on: VS monitoring. Client placed on continuous cardiac and pulse oximetry monitoring. NIBP monitoring applied. Door closed. Noise minimized. Warm blanket given. 16:12 Basic Metabolic Panel Sent. ld1 16:12 CBC with Diff Sent. ld1 16:12 Inserted saline lock: 22 gauge in right forearm, using aseptic technique. Blood ld1 collected. 16:12 No provider procedures requiring assistance completed. tm6 16:36 Hip Left 2 View XRAY In Process Unspecified. EDMS 17:43 Hip Right 2 View XRAY In Process Unspecified. EDMS 18:02 Mahda Simon MD is Hospitalizing Provider. ms3 18:49 Griffith cath inserted, using sterile technique, 16 Fr., by il, balloon inflated, to mb9 gravity drainage, returned corby urine. Patient tolerated well. 20:31 Patient admitted, IV remains in place. lg3 Administered Medications: 16:12 Drug: morphine IVP or IV 4 mg IVP once over 4 mins Route: IVP; Infused Over: 4 mins; ld1 Site: right forearm; 16:27 Follow up: BP 152 / 107; Pulse 77 bpm; Resp 19 bpm; Pulse Ox 100% ; Pain 2/10 Adult; tm6 Response: No adverse reaction 16:12 Drug: Ondansetron IVP 4 mg IVP once; over 2 minutes Route: IVP; Site: right forearm; ld1 16:25 Follow up: BP 152 / 107; Pulse 77 bpm; Resp 19 bpm; Pulse Ox 100% ; Pain 2/10 Adult; tm6 Response: No adverse reaction 16:27 Follow up: Response: No adverse reaction tm6 Medication: 16:12 VIS not applicable for this client. tm6 Outcome: 18:02 Decision to Hospitalize by Provider. ms3 20:31 Admitted to Med/surg accompanied by tech, via stretcher, room 209, Report called to ela Khan RN 20:31 Condition: stable 20:31 Instructed on the need for admit, Demonstrated understanding of instructions, 20:45 Patient left the ED. harshil Signatures: Dispatcher [employer] Agnieszka Flynn RN RN kl Gibson, Lacie, RN RN 3 Leo Suresh, DO ms3 Edwina Suresh RN RN ld1 Marlys, Lynne Pacheco, RN RN mb9 Rosanne Jerome6 Lizzette Queen, RN RN tm6
--- NOTE | 2023-06-20 18:03 | EDPHYS ---
Physician Documentation [facility] Name: Sangeetha Chin Age: 78 yrs Sex: Female : 1945 Arrival Date: 06/20/2023 Time: 15:38 Bed 8 Private MD: ED Physician Leo Suresh HPI: 06/20 15:43 This 78 yrs old Female presents to ER via EMS with complaints of fall. ms3 15:43 78-year-old female with past medical history of arthritis, hyperlipidemia, ms3 hydrocephalus, hypertension, hypothyroidism presents to the emergency department status post fall just prior to arrival via [facility]. Patient is complaining of 10/10 right hip pain. Patient denies any alleviating or inciting factors. Patient states she did hit her head on a glass door when falling.. Historical: - Allergies: 15:41 No Known Allergies; mb9 - Home Meds: 15:41 lisinopril 5 mg Oral tab once daily [Active]; levothyroxine oral once daily [Active]; mb9 - PMHx: 15:41 Arthritis; High Cholesterol; hydrocephelus; Hypertension; Hypothyroidism; mb9 - Immunization history:: Adult Immunizations up to date. - Social history:: Smoking status: Patient denies any tobacco usage or history of. ROS: 15:43 Constitutional: Negative for fever, and chills. Neck: Negative for injury, pain, and ms3 swelling, Cardiovascular: Negative for chest pain, and palpitations. Respiratory: Negative for shortness of breath, cough, wheezing, and pleuritic chest pain, Abdomen/GI: Negative for abdominal pain, nausea, vomiting, diarrhea, and constipation, MS/Extremity: Negative for injury and deformity, Skin: Negative for injury, rash, and discoloration, 15:43 All other systems are negative, Exam: 15:43 Constitutional: This is a well developed, well nourished patient who is awake, alert, ms3 and in no acute distress. Neck: Trachea midline, no cervical lymphadenopathy. Supple, full range of motion without nuchal rigidity, or vertebral point tenderness. No Meningismus. Chest/axilla: Normal chest wall appearance and motion. Nontender with no deformity. Cardiovascular: Regular rate and rhythm with a normal S1 and S2. No gallops, murmurs, or rubs. Normal PMI, no JVD. No pulse deficits. Respiratory: Lungs have equal breath sounds bilaterally, clear to auscultation and percussion. No rales, rhonchi or wheezes noted. No increased work of breathing, no retractions or nasal flaring. Abdomen/GI: Soft, non-tender, with normal bowel sounds. No distension or tympany. No guarding or rebound. No evidence of tenderness throughout. Skin: Warm, dry with normal turgor. Normal color with no rashes, no lesions, and no evidence of cellulitis. 15:43 Musculoskeletal/extremity: Extremities: noted in the Right hip: pain, tenderness, Vital Signs: 15:39 BP 161 / 78; Pulse 93; Resp 18; Temp 98.2; Pulse Ox 97% on R/A; Weight 77.11 kg; Height mb9 5 ft. 7 in. ; Pain 10/10; 16:13 BP 152 / 107; Pulse 86; Resp 18; Pulse Ox 98% on R/A; Pain 8/10; ld1 16:25 BP 152 / 107; Pulse 77; Resp 19; Pulse Ox 100% ; Pain 2/10; tm6 16:27 BP 152 / 107; Pulse 77; Resp 19; Pulse Ox 100% ; Pain 2/10; tm6 17:06 BP 142 / 63; Pulse 79; Pulse Ox 99% on R/A; tm6 17:41 BP 135 / 95; Pulse 79; Pulse Ox 98% ; tm6 19:10 BP 115 / 68; Pulse 90; Resp 16 S; Pulse Ox 97% on R/A; lg3 15:39 Body Mass Index 26.63 (77.11 kg, 170.18 cm) mb9 15:39 Pain Scale: Adult mb9 16:13 Pain Scale: Adult ld1 16:25 Pain Scale: Adult tm6 16:27 Pain Scale: Adult tm6 MDM: 15:39 Patient medically screened. ms3 15:43 Differential diagnosis: hip fracture, intertrochanteric fracture, femoral neck ms3 fracture, strain. 18:02 Data reviewed: vital signs, nurses notes, lab test result(s), radiologic studies, and ms3 as a result, I will admit patient. Consideration of Admission/Observation Patient was admitted/placed on observation. Management of patient was discussed with the following: Hospitalist: Discussed case with Mar Corado on behalf of the hospitalist service. Scientific Software Engineer: Dr Rashid. I considered the following discharge prescriptions or medication management in the emergency department Medications were administered in the Emergency Department. See MAR. Independent interpretation of the following test(s) in the Emergency Department X-Ray: My interpretation is Right hip x-ray shows femoral neck fracture. Care significantly affected by the following chronic conditions: Hypertension. Counseling: I had a detailed discussion with the patient and/or guardian regarding the historical points, exam findings, and any diagnostic results supporting the discharge/admit diagnosis, lab results, radiology results, the need for further work-up and treatment in the hospital. ED course: Discussed case with Mar Corado, nurse harshil, and Dr. Rashid. Discussed necessity for admission with patient and her . 06/20 15:41 Order name: Basic Metabolic Panel; Complete Time: 16:58 ms3 06/20 15:41 Order name: CBC with Diff ms3 06/20 18:41 Order name: Protime (+INR) EDMS 06/20 18:41 Order name: PTT, Activated Partial Thromb EDMS 06/20 18:41 Order name: Urinalysis w/ reflexes EDMS 06/20 18:41 Order name: CBC with Automated Diff EDMS 06/20 18:41 Order name: CBC with Automated Diff EDMS 06/20 18:41 Order name: Comprehensive Metabolic Panel EDMS 06/20 18:41 Order name: Comprehensive Metabolic Panel EDMS 06/20 18:41 Order name: Magnesium EDMS 06/20 18:41 Order name: Magnesium EDMS 06/20 18:41 Order name: Phosphorus EDMS 06/20 18:41 Order name: Phosphorus EDMS 06/20 19:23 Order name: CBC Smear Scan EDMS 06/20 15:41 Order name: CT Head C Spine; Complete Time: 16:58 ms3 06/20 15:41 Order name: Hip Left 2 View XRAY; Complete Time: 16:58 ms3 06/20 17:10 Order name: Hip Right 2 View XRAY ms3 06/20 18:41 Order name: CONS Physician Consult EDMS 06/20 18:41 Order name: Physical Therapy Consult EDMS 06/20 15:41 Order name: Labs collected and sent; Complete Time: 15:56 ms3 06/20 18:49 Order name: Jackson; Complete Time: 18:49 mb9 Administered Medications: 16:12 Drug: morphine IVP or IV 4 mg IVP once over 4 mins Route: IVP; Infused Over: 4 mins; ld1 Site: right forearm; 16:27 Follow up: BP 152 / 107; Pulse 77 bpm; Resp 19 bpm; Pulse Ox 100% ; Pain 2/10 Adult; tm6 Response: No adverse reaction 16:12 Drug: Ondansetron IVP 4 mg IVP once; over 2 minutes Route: IVP; Site: right forearm; ld1 16:25 Follow up: BP 152 / 107; Pulse 77 bpm; Resp 19 bpm; Pulse Ox 100% ; Pain 2/10 Adult; tm6 Response: No adverse reaction 16:27 Follow up: Response: No adverse reaction tm6 Disposition Summary: 06/20/23 18:02 Hospitalization Ordered Notes: Hospitalization Status: Inpatient Admission ms3 Provider: Mahad Simon ms3 Location: Telemetry/MedSurg (Inpatient) ms3 Condition: Stable ms3 Problem: new ms3 Symptoms: are unchanged ms3 Bed/Room Type: Standard ms3 Room Assignment: 209(06/20/23 19:53) cg Diagnosis - Displaced fracture of base of neck of left femur ms3 - Fall on same level, unspecified ms3 - Pain in right hip ms3 Forms: - Medication Reconciliation Form ms3 - SBAR form ms3 - Leadership Thank You Letter ms3 Signatures: Dispatcher [employer] Kathleen Kimball RN RN cg Leo Suresh DO DO ms3 Edwina Suresh RN RN ld1 Lynne Frankel RN RN mb9 Lizzette Queen RN tm6 Corrections: (The following items were deleted from the chart) 19:53 18:02 ms3 cg
--- NOTE | 2023-06-20 18:12 | RAD REPORT ---
EXAM DESCRIPTION: RAD - Hip Right 2 View - 06/20/2023 5:42 pm CLINICAL HISTORY: Right hip pain FINDINGS: Subcapital fracture right femur with moderate displacement fracture fragments and angulati on present at fracture site No dislocation
[2023-06-20] MEDS ORDERED: ONDANSETRON 4 MG/2 ML VIAL IV PRN (18:42)
[2023-06-20] MEDS ORDERED: ONDANSETRON 4 MG/2 ML VIAL ONE (18:53)
[2023-06-20] MEDS: MORPHINE 4 MG/ML SYR IV PRN (19:03)
[2023-06-20 19:22] LABS: Blood Morphology Comment NOT SEEN (NOT SEEN); Platelet Estimate DECR; White Blood Cell Scan OK (OK)
[2023-06-20] MEDS: NA CHLORIDE 0.9% 1,000 ML IV SCH (22:29)
[2023-06-21] MEDS: MORPHINE 4 MG/ML SYR IV PRN ×2 (00:54→08:02)
[2023-06-21 03:31] LABS: Hematocrit 25.6 % (36.0-45.0); MCV 95.1 fL (80-100); MPV 8.6 fL (7.6-11.3); Platelets 109 thou/uL (152-406); Protime INR 1.15
[2023-06-21 04:08] LABS: Albumin 2.9 g/dL (3.4-5.0); Bilirubin Total 0.6 mg/dL (0.2-1.0); Magnesium 2.2 mg/dL (1.6-2.4); Protein, Total 5.8 g/dL (6.4-8.2); Troponin High Sensitivity 8.7 pg/mL (<58.9)
--- NOTE | 2023-06-21 04:22 | P.HP ---
Certification for Inpatient With expected LOS: >2 Midnights Patient will require the following post-hospital care: Rehabilitation Practitioner: I am a practitioner with admitting privileges, knowledge of patient current condition, hospital course, and medical plan of care. Services: Services provided to patient in accordance with Admission requirements found in Title 42 Section 412.3 of the Code of Federal Regulations Patient History Date of Service: 06/21/23 Primary Care Provider: Dr. Griffiths Reason for admission: Fall, Fractured right femoral neck History of Present Illness: Mrs. Chin is a 78 yo patient who stood from bed and fell. No LOC. Right leg externally rotated and shortened. Dr. Rashid was phoned by the ED MD for consult. Mrs. Chin will be NPO post MN. Dr. Mauro will be consulted for cardiac clearance to go to the OR. Allergies No Known Allergies Allergy (Verified 07/28/22 09:48) Home medications list reviewed: Yes Home Medications: Levothyroxine [Synthroid*] 0.088 mg PO DAILY 04/23/17 Multivitamin [Daily Multiple Vitamin] 1 tab PO DAILY 04/23/17 lisinopriL [Prinivil*] 2.5 mg PO DAILY 04/23/17 Codeine/APAP [Tylenol W/Codeine #3 tab] 1 tab PO Q6HP PRN #1 tab 07/28/22 Diphenhydramine HCl [Benadryl Allergy] 1 tab PO DAILY PRN 07/28/22 Ibuprofen 1 tab PO DAILY PRN 07/28/22 Prednisone [Fernie] 1 tab PO BID 07/28/22 - Past Medical/Surgical History Has patient received pneumonia vaccine in the past: No Diabetic: No -: breast ca -: HTN -: hypothyroid -: hyperlipidemia -: hydrocephalus with shunt to left side -: R mastectomy with lymph node removal -: R knee sx x 2 -: appendectomy -: hysterectomy -: -: cholecystectomy Psychosocial/ Personal History: Lives at home with her - Family History Family History: Reviewed- Non-Contributory - Family History Father -: Heart disease Mother -: Heart disease - Social History Smoking Status: Unknown if ever smoked Alcohol use: No CD- Drugs: No Caffeine use: Yes Place of Residence: Home Review of Systems 10-point ROS is otherwise unremarkable Musculoskeletal: As per HPI Physical Examination - Vital Signs Temperature: 98.2 F Blood Pressure: 115/68 Pulse: 90 Respirations: 16 Pulse Ox (%): 97 - Physical Exam General: Alert, In no apparent distress, Oriented x3 HEENT: Atraumatic, Normocephalic, PERRLA Neck: Supple, 2+ carotid pulse no bruit Respiratory: Clear to auscultation bilaterally, Normal air movement Cardiovascular: No edema, Normal pulses Capillary refill: <2 Seconds Gastrointestinal: Normal bowel sounds, Soft and benign Musculoskeletal: Other (right leg shortened and externally rotated, tenderness to greater trochanteric area) Neurological: Normal tone, Sensation intact, Normal affect External genitalia: Deferred Rectal: Deferred - Studies Laboratory Data (last 24 hrs) 06/20/23 06/20/23 15:50 15:50 WBC 7.60 Hgb 10.4 L Hct 29.5 L Plt Count 155 Sodium 140 Potassium 4.6 BUN 28 H Creatinine 1.30 H Glucose 98 Assessment and Plan - Problems (Diagnosis) (1) Fracture of right hip requiring operative repair Current Visit: Yes Status: Acute Plan: NPO p MN, Morphine/zofran for pain/nausea Neurovascular checks q 4h Cardiology clearance, consult Dr. Mauro Consult Dr. Rashid Hold DVT prophylaxis for surgery. Noel Jackson Qualifiers: Encounter type: initial encounter Fracture type: closed Qualified Code(s): S72.001A - Fracture of unspecified part of neck of right femur, initial encounter for closed fracture Discharge Plan: Other (rehabilitation) Plan to discharge in: 72 Hours - Advance Directives Does patient have a Living Will: Yes Does patient have a Durable POA for Healthcare: No - Code Status/Comfort Care Code Status: Do Not Attempt Resuscitat Critical Care: No Time Spent Managing Pts Care (In Minutes): 60
[2023-06-21] MEDS: NA CHLORIDE 0.9% 1,000 ML IV SCH ×3 (08:01→20:05)
--- NOTE | 2023-06-21 10:08 | CON ---
Date of Consultation: 06/21/2023 Reason For Consultation: Right hip pain. History Of Present Illness: Sangeetha is a 78-year-old female who presented to the ER after sustaining a fall from standing height. The patient reports pain in the right hip with inability to bear weight. X-rays in the emergency room demonstrate a displaced right femoral neck fracture. The patient was a dmitted to the floor by the hospitalist service. The patient denies any other musculoskeletal compla ints at this time. Review of Systems: As above, otherwise negative. Past Medical History: Includes breast cancer, hypertension, hypothyroidism, hyperlipidemia, hydrocep halus. Past Surgical History: Includes right mastectomy, right total knee arthroplasty with revision, appen dectomy, hysterectomy, , cholecystectomy. Medications: Synthroid, multivitamin, lisinopril, Tylenol No.3, Benadryl, ibuprofen, prednisone. Allergies: NO KNOWN DRUG ALLERGIES. Social History: Lives at home. Denies tobacco or alcohol use. Physical Examination: General: No apparent distress. HEENT: Normocephalic, atraumatic. Neck: Supple. Cardiovascular: Brisk cap refill to all digits. Chest: Nonlabored breathing. Abdomen: Nondistended. Psychiatric: Responsive to exam. Musculoskeletal: Right lower extremity is shortened, externally rotated. Tenderness to palpation of the right hip pain with range of motion of the right hip. No tenderness over the right knee, tibia, foot, or ankle. Sensation grossly intact over the dorsal and plantar surfaces of the right foot. L eft lower extremity: Functional range of motion without pain. No gross deformities. No dislocation s. Bilateral upper extremities: Functional range of motion without pain. No gross deformities or d islocation. Diagnostic Studies: X-rays of the right hip demonstrate a right displaced femoral neck fracture. Assessment And Plan: Ms. Chin is a 78-year-old female with a right displaced femoral neck fra cture. I discussed with the patient at length risks and benefits associated with operative and nonop erative treatment measures. Given her displaced fracture, recommended right hip hemiarthroplasty. R isks and benefits associated with the procedure were discussed with the patient, and she expressed un derstanding. We will proceed with surgery later today if medically cleared, and Physical Therapy mary ann l be consulted postoperatively. The patient is anemic preoperatively. We discussed the possibility of needing blood transfusion postoperatively and she expressed understanding. CV/MODL Voice ID: [id number] Report ID: [id number]
[2023-06-21] MEDS ORDERED: propofoL 200 MG/20 ML VIAL IV ONE (10:38)
[2023-06-21] MEDS ORDERED: FENTANYL CITR 100 MCG/2 ML ONE (10:39)
[2023-06-21] MEDS ORDERED: ROPIVACAINE HCL 40 ML ONE (11:04)
[2023-06-21] MEDS ORDERED: LIDOCAINE 1% MPF 5 ML VIAL ONE (11:04)
[2023-06-21] MEDS ORDERED: CEFAZOLIN SODIUM 2 GM/VIAL ONE (11:28)
[2023-06-21] MEDS ORDERED: ROCURONIUM 50 MG/5 ML VIAL IV ONE (11:36)
[2023-06-21] MEDS ORDERED: VANCOMYCIN 1 GM/VIAL ONE (11:52)
[2023-06-21] MEDS ORDERED: NA CHLORIDE 0.9% 1,000 ML ONE (12:05)
[2023-06-21] MEDS ORDERED: NS 0.9% VIAL 10 ML ONE (12:08)
--- NOTE | 2023-06-21 12:15 | RAD REPORT ---
EXAM DESCRIPTION: RAD - Femur Right - 06/21/2023 12:03 pm CLINICAL HISTORY: PAIN COMPARISON: Hip Right 2 View dated 06/20/2023; Hip Left 2 View dated 06/20/2023 FINDINGS/IMPRESSION: Status post constrained right knee arthroplasty. Mild left acetabular degenerat alejandra changes. No hardware complications or acute fractures. Peripheral vascular calcifications.
--- NOTE | 2023-06-21 14:07 | P.BOP ---
Preoperative diagnosis: right femoral neck fracture Postoperative diagnosis: same Primary procedure: right hip hemiarthroplasty Ict Sales Assistant: NONE,NONE Estimated blood loss: 150 cc Specimen: right femoral head Findings: see dictation Anesthesia: General Complications: None Implants: Biomet ijeoma 14 STD pressfit stem 28x-3 head, 45 bipolar shell Fluids & blood products: per anesthesia record Transferred to: Recovery Room Condition: Good
--- NOTE | 2023-06-21 14:29 | P.PN ---
Date of Service: 06/21/23 Status post ORIF today. Analgesics as needed DVT prophylaxis PT eval. Consult and continue home medications. Monitor H&H.
[2023-06-21] MEDS ORDERED: GLYCOPYRROLATE 0.2 MG/ML SYR ONE (14:31)
--- NOTE | 2023-06-21 14:39 | RAD REPORT ---
EXAM DESCRIPTION: RAD - Hip Right 1 View - 06/21/2023 1:44 pm CLINICAL HISTORY: HIP IN OR COMPARISON: Hip Right 2 View dated 06/20/2023; Femur Right dated 06/21/2023; Hip Left 2 View dated 1 08/20/2022 TECHNIQUE: Right hip, 2 views. FINDINGS: Imaging performed in PA projection. A right hip prothesis has been placed. Hardware is in expected location. Overlying surgical stools somewhat limit evaluation. A soft tissue defect is noted laterally at the level of the greater trochanter. IMPRESSION: Postoperative right hip with no unexpected finding.
[2023-06-21] MEDS ORDERED: TRAMADOL HCL 50 MG TAB PO PRN (14:46)
[2023-06-21] MEDS ORDERED: ACETAMINOPHEN 325 MG TABLET PO PRN (14:46)
[2023-06-21 15:47] LABS: Hematocrit 27.8 % (36.0-45.0)
--- NOTE | 2023-06-21 17:05 | RAD REPORT ---
EXAM DESCRIPTION: RAD - Hip Right 2 View - 06/21/2023 3:12 pm CLINICAL HISTORY: postop COMPARISON: Hip Right 1 View dated 06/21/2023; Hip Right 2 View dated 06/20/2023 TECHNIQUE: Right hip, 2 views. FINDINGS: A right hip prothesis has been placed. Hardware is in expected location. Postsurgical soft tissue changes. Skin jose miguel are noted. IMPRESSION: Postoperative right hip with no unexpected finding.
[2023-06-21] MEDS: VANCOMYCIN 1 GM in NA CHLORIDE 0.9% 250 ML IVPB SCH (20:04)
[2023-06-21] MEDS: ENSURE SURGERY 237 ML CAN PO SCH (20:05)
[2023-06-22 02:53] LABS: Absolute Lymphocytes (CBC) 0.5 K/uL (0.7-4.9); Hematocrit 23.8 % (36.0-45.0); Lymphocytes % 9.8 % (15.3-44.8); MCV 94.5 fL (80-100); MPV 8.9 fL (7.6-11.3); Platelets 109 thou/uL (152-406); RBC Red Blood Cell Count 2.51 M/uL (3.86-4.86)
[2023-06-22 03:10] LABS: Potassium 4.1 mEq/L (3.5-5.1)
[2023-06-22] MEDS ORDERED: ENOXAPARIN 40 MG/0.4 ML SQ SCH (09:00)
[2023-06-22] MEDS: ENSURE SURGERY 237 ML CAN PO SCH ×2 (09:00→21:00)
[2023-06-22] MEDS: VANCOMYCIN 1 GM in NA CHLORIDE 0.9% 250 ML IVPB SCH (10:03)
[2023-06-22] MEDS: NA CHLORIDE 0.9% 1,000 ML IV SCH ×2 (10:04→22:13)
--- NOTE | 2023-06-22 13:39 | P.PN ---
Subjective Date of Service: 06/22/23 Primary Care Provider: Dr. Griffiths Chief Complaint: Fall, Fractured right femoral neck Patient has no new complaint. She states hip pain is well controlled. She was seen ambulating with a walker during therapy. Physical Examination - Vital Signs Temperature: 97.3 F Blood Pressure: 107/87 Pulse: 89 Respirations: 18 Pulse Ox (%): 97 Assessment And Plan - Plan Physical Exam General: Alert, In no apparent distress, Oriented x3 Respiratory: Clear to auscultation bilaterally, Normal air movement Cardiovascular: No edema, regular rhythm and normal rate. Gastrointestinal: Normal bowel sounds, Soft and benign, nontender. Musculoskeletal: Right lateral thigh wound with clean dressing. Neurological: No focal motor deficit. Diagnosis Right femoral fracture status post ORIF Hypertension Hypothyroidism Hyperlipidemia Plan: Right femoral fracture status post ORIF Status post ORIF by Dr. Rashid. Analgesics as needed Increase activity as tolerated DVT prophylaxis with Eliquis. Patient is being evaluated for inpatient rehab. Continue PT. Essential hypertension Blood pressures is well controlled and soft readings today. Continue to hold antihypertensives for now to avoid hypotension. Hyperlipidemia/hypothyroidism Continue home medications. DVT prophylaxis: Eliquis. Disposition: Acute rehab
--- NOTE | 2023-06-22 17:30 | EKG ---
Test Date: 2023-06-20 Test Time: 11:06:52 Manager Pathology: CAL MEASUREMENT RESULTS: Intervals: Rate: 60 GA: 186 QRSD: 78 QT: 424 QTc: 424 [place]: P: 46 GA: 186 QRS: -41 T: 66 INTERPRETIVE STATEMENTS: Normal sinus rhythm Left axis deviation Cannot rule out Anterior infarct, age undetermined Abnormal ECG Compared to ECG 07/28/2022 10:10:08 Left-axis deviation now present Myocardial infarct finding now present Sinus arrhythmia no longer present Electronically Signed On 06-22-23 17:23:30 CONTINUITY EDITOR by Ernst Mauro
[2023-06-22] MEDS ORDERED: SIMVASTATIN 40 MG PO SCH (21:00)
[2023-06-22] MEDS: ATORVASTATIN 20 MG TAB PO SCH (22:12)
[2023-06-22] MEDS: APIXABAN 2.5 MG TABLET PO SCH (22:12)
[2023-06-22] MEDS: HYDROCODONE/APAP 7.5/325 MG TAB PO PRN (22:13)
[2023-06-23 03:00] LABS: Hematocrit 20.6 % (36.0-45.0); Lymphocytes % 19.5 % (15.3-44.8); MCV 94.9 fL (80-100); MPV 8.9 fL (7.6-11.3); Platelets 84 thou/uL (152-406); RBC Red Blood Cell Count 2.17 M/uL (3.86-4.86)
[2023-06-23 03:27] LABS: Potassium 4.1 mEq/L (3.5-5.1)
[2023-06-23] MEDS: LEVOTHYROXINE SOD 0.1 MG TAB PO SCH (06:32)
[2023-06-23] MEDS: APIXABAN 2.5 MG TABLET PO SCH ×2 (08:10→21:40)
[2023-06-23] MEDS: NA CHLORIDE 0.9% 1,000 ML IV SCH (08:11)
[2023-06-23] MEDS: ENSURE SURGERY 237 ML CAN PO SCH ×2 (08:11→21:00)
[2023-06-23] MEDS: HYDROCODONE/APAP 7.5/325 MG TAB PO PRN ×2 (09:35→18:07)
--- NOTE | 2023-06-23 14:25 | P.PN ---
Subjective Date of Service: 06/23/23 Primary Care Provider: Dr. Griffiths Chief Complaint: Fall, Fractured right femoral neck Patient has no new complaint. She states hip pain is well controlled. She is participating in therapy and ambulating with assistance. Physical Examination - Vital Signs Temperature: 98.3 F Blood Pressure: 110/70 Pulse: 64 Respirations: 14 Pulse Ox (%): 95 Assessment And Plan - Plan Physical Exam General: Alert, In no apparent distress, Oriented x3 Respiratory: Clear to auscultation bilaterally, Normal air movement Cardiovascular: No edema, regular rhythm and normal rate. Gastrointestinal: Normal bowel sounds, Soft and benign, nontender. Musculoskeletal: Right lateral thigh wound with clean dressing. Neurological: No focal motor deficit. Diagnosis Right femoral fracture status post ORIF Hypertension Hypothyroidism Hyperlipidemia Plan: Right femoral fracture status post ORIF Status post ORIF by Dr. Rashid. Analgesics as needed DVT prophylaxis with Eliquis. Patient is participating physical therapy. Patient is being evaluated for inpatient rehab. Continue PT. Essential hypertension Blood pressures is well controlled and soft readings today. Continue to hold antihypertensives for now to avoid hypotension. Hyperlipidemia/hypothyroidism Continue home medications. DVT prophylaxis: Eliquis. Disposition: Acute rehab
[2023-06-23] MEDS: ATORVASTATIN 20 MG TAB PO SCH (21:39)
[2023-06-23] MEDS: MELATONIN 5 MG TABLET PO PRN (21:40)
[2023-06-24] MEDS: LEVOTHYROXINE SOD 0.1 MG TAB PO SCH (06:38)
[2023-06-24] MEDS: APIXABAN 2.5 MG TABLET PO SCH ×2 (08:21→20:42)
[2023-06-24] MEDS: HYDROCODONE/APAP 7.5/325 MG TAB PO PRN (08:21)
[2023-06-24] MEDS: ENSURE SURGERY 237 ML CAN PO SCH ×2 (08:22→20:43)
--- NOTE | 2023-06-24 08:49 | P.PN ---
Subjective Date of Service: 06/24/23 Primary Care Provider: Dr. Griffiths Chief Complaint: s/p right hip te pain controlled Physical Examination - Vital Signs Temperature: 97.4 F Blood Pressure: 109/59 Pulse: 82 Respirations: 18 Pulse Ox (%): 96 - Physical Exam General: Alert, In no apparent distress Musculoskeletal: Other (RLE: dressing c/d/i; +EHL/FHL/GSC/TA; sensation grossly intact distally) Assessment And Plan - Plan Sangeetha is a 78-year-old female status post right hip hemiarthroplasty postoperative day #1 -Eliquis for DVT prophylaxis -Continue to monitor H&H patient had chronic underlying anemia with new acute expected postoperative blood loss anemia -Mobilize with physical therapy; weightbearing as tolerated right lower extremity with posterior hip precautions -Await inpatient rehab eval
--- NOTE | 2023-06-24 08:51 | P.PN ---
Subjective Date of Service: 06/24/23 Primary Care Provider: Dr. Griffiths Chief Complaint: s/p right hip te Subjective: Ambulating, Improving, Working w/ PT pain controlled; ambulating with physical therapy Physical Examination - Vital Signs Temperature: 97.4 F Blood Pressure: 109/59 Pulse: 82 Respirations: 18 Pulse Ox (%): 96 - Physical Exam General: Alert, In no apparent distress Musculoskeletal: Other (Right lower extremity: Dressing with mild sanguinous drainage; +EHL/FHL/GSC/TA; sensation grossly intact distally) Assessment And Plan - Plan Sangeetha is a 78-year-old female status post right hip hemiarthroplasty postoperative day #3 -Eliquis for DVT prophylaxis -continue to monitor h/h -d/c griffith -Mobilize with physical therapy; weightbearing as tolerated right lower extremity with posterior hip precautions -Await inpatient rehab eval
[2023-06-24 11:45] LABS: Absolute Lymphocytes (CBC) 1.2 K/uL (0.7-4.9); Hematocrit 21.8 % (36.0-45.0); Lymphocytes % 21.2 % (15.3-44.8); MCV 94.8 fL (80-100); MPV 8.4 fL (7.6-11.3); Platelets 122 thou/uL (152-406)
--- NOTE | 2023-06-24 14:42 | P.PN ---
Subjective Date of Service: 06/24/23 Primary Care Provider: Dr. Griffiths Chief Complaint: s/p right hip te No new complaint She states hip pain is well controlled. She is participating in therapy and ambulating with assistance. She has good oral intake. Physical Examination - Vital Signs Temperature: 97.4 F Blood Pressure: 109/59 Pulse: 82 Respirations: 18 Pulse Ox (%): 96 Assessment And Plan - Plan Physical Exam General: Alert, In no apparent distress, Oriented x3 Respiratory: Clear to auscultation bilaterally, Normal air movement Cardiovascular: No edema, regular rhythm and normal rate. Gastrointestinal: Normal bowel sounds, Soft and benign, nontender. Musculoskeletal: Right lateral thigh wound with clean dressing. Neurological: No focal motor deficit. Diagnosis Right femoral fracture status post ORIF Hypertension Hypothyroidism Hyperlipidemia Plan: Right femoral fracture status post ORIF Status post ORIF by Dr. Rashid. Analgesics as needed Eliquis for DVT prophylaxis Patient is participating physical therapy. Awaiting inpatient rehab placement Continue PT. Essential hypertension Blood pressures is well controlled and soft readings today. Continue to hold antihypertensives for now to avoid hypotension. Hyperlipidemia/hypothyroidism Continue home medications. DVT prophylaxis: Eliquis. Disposition: Acute rehab
[2023-06-24] MEDS: ATORVASTATIN 20 MG TAB PO SCH (20:42)
[2023-06-24] MEDS: MELATONIN 5 MG TABLET PO PRN (20:42)
[2023-06-25 04:37] LABS: Hematocrit 21.6 % (36.0-45.0)
[2023-06-25] MEDS: LEVOTHYROXINE SOD 0.1 MG TAB PO SCH (05:25)
[2023-06-25] MEDS: APIXABAN 2.5 MG TABLET PO SCH ×2 (07:55→20:40)
[2023-06-25] MEDS: ENSURE SURGERY 237 ML CAN PO SCH ×2 (07:55→20:40)
--- NOTE | 2023-06-25 14:47 | P.PN ---
Subjective Date of Service: 06/25/23 Primary Care Provider: Dr. Griffiths Chief Complaint: s/p right hip te Patient has no new complaint She states hip pain is well controlled. No issues overnight No BM for 4 days. Physical Examination - Vital Signs Temperature: 97.8 F Blood Pressure: 111/54 Pulse: 80 Respirations: 16 Pulse Ox (%): 98 Assessment And Plan - Plan Physical Exam General: Alert, In no apparent distress, Oriented x3 Respiratory: Clear to auscultation bilaterally, Normal air movement Cardiovascular: No edema, regular rhythm and normal rate. Gastrointestinal: Normal bowel sounds, Soft and benign, nontender. Musculoskeletal: Right lateral thigh wound with clean dressing. Neurological: No focal motor deficit. Diagnosis Right femoral fracture status post ORIF Hypertension Hypothyroidism Hyperlipidemia Plan: Right femoral fracture status post ORIF Status post ORIF by Dr. Rashid. Analgesics as needed Eliquis for DVT prophylaxis Patient is participating physical therapy. Awaiting inpatient rehab placement Continue PT. Essential hypertension Blood pressures is well controlled and soft readings today. Continue to hold antihypertensives for now to avoid hypotension. Hyperlipidemia/hypothyroidism Continue home medications. Functional constipation Stool softeners and laxatives DVT prophylaxis: Eliquis. Disposition: Acute rehab
[2023-06-25] MEDS ORDERED: POLYETHYL GLY 3350 17 GM/DOSE PO PRN (14:48)
[2023-06-25] MEDS: HYDROCODONE/APAP 7.5/325 MG TAB PO PRN (20:25)
[2023-06-25] MEDS: SENOSIDES 8.6 MG TAB PO SCH (20:40)
[2023-06-25] MEDS: ATORVASTATIN 20 MG TAB PO SCH (20:40)
[2023-06-25] MEDS: MELATONIN 5 MG TABLET PO PRN (20:41)
[2023-06-26] MEDS: LEVOTHYROXINE SOD 0.1 MG TAB PO SCH (05:38)
[2023-06-26] MEDS: ENSURE SURGERY 237 ML CAN PO SCH ×2 (08:08→21:00)
[2023-06-26] MEDS: APIXABAN 2.5 MG TABLET PO SCH ×2 (08:08→21:49)
[2023-06-26] MEDS: SENOSIDES 8.6 MG TAB PO SCH ×2 (08:08→21:49)
[2023-06-26 08:21] LABS: Hematocrit 21.5 % (36.0-45.0)
--- NOTE | 2023-06-26 08:26 | P.OP ---
Preoperative diagnosis: right femoral neck fracture Postoperative diagnosis: same Primary procedure: right hip hemiarthroplasty Anesthesia: general Estimated blood loss: 150 cc Specimen: right femoral head Findings: see dictation Operative Technique: Indication For Procedure: Sangeetha is a 78-year-old female who presented to the ER after sustaining a fall on her right side with subsequent pain to her right hip and inability to bear weight. X-rays demonstrated a displaced right femoral neck fracture. I discussed with the patient and her family risks and benefits associated with operative and nonoperative treatment. She expressed understanding and elected to proceed with operative treatment. Description Of Procedure: After informed consent was obtained, the patient was i dentified in the preoperative holding area. The right lower extremity was marked. The patient was then taken back to the operating room, transferred to the operating table in supine fashion, placed under general anesthesia. She was then placed in the left lateral decubitus position with her extremities well padded. The right lower extremity was then prepped and draped in usual sterile fashion. A time-out was initiated. The correct patient and procedure were confirmed and identified. The patient did receive a preoperative prophylactic antibiotics. Surgery was then begun and approximately a 15 cm long curvilinear incision was placed centered over the greater trochanter consistent with a posterior approach to the hip. Dissection was then taken out of the tensor fascia james which was split and divided and retracted using a Charnley retractor. Dissection was then taken down to the short external rotators, which were elevated off the greater trochanter using Bovie electrocautery and tagged u sing a #5 Ethibond. A T-shaped capsulotomy was then performed. Hematoma was then evacuated using suction. The fracture was then identified. A corkscrew was then placed to remove the femoral head and a size 45 mm head was selected. Trial implant was then placed within the acetabulum. There was good overall fit. Next, attention was taken to the proximal femur. A canal finder was first introduced after using a shashankie cutter followed by lateralizer. The canal was then reamed from size 7 mm reamer to a size 14 mm reamer with good fit of the 10 mm reamer at that point. The canal was then broached starting with a 7 mm broach to a 14 mm broach with good fit. Xrays were taken to ensure adequate distance was maintained from her distal femoral implant from prior revision total knee arthroplasty. Calcar planer was then used to freshen up the femoral neck cut and a -3 mm head and neck with 45 mm shell was then placed on the trial. The hip was reduced. There was good overall leg length and range of motion as well as stability noted. The trial implants were then removed. The proximal femur as well as acetabulum were then irrigated thoroughly with normal saline using pulse lavage. The 14 mm pressfit stem was then placed into position with overall good stability. Intraoperative xrays were obtained to confirm proper placement and sizing. -3 x 28 mm head and a 46 mm shell were then placed on the stem and the hip was reduced. The patient had overall good leg length, good stability of the hip with good range of motion. The patient had informed us preoperatively that her left lower extremity was shorter than the right and we attempted to minimize any leg length discrepancy as well as maintain stability of the implant. The wound was then irrigated thoroughly with normal saline using pulse lavage. The capsule was then approximated using a 5-0 Ethibond. The external rotators were then tacked back to the greater trochanter using a drill and suture passer. The wound again was then irrigated with normal saline. The tensor fascia james was approximated using 0 Vicryl. Subcutaneous tissue was approximated using a 2-0 Vicryl. Skin was approximated using jose miguel. Sterile dressings were applied. The patient was placed in an abduction pillow, awakened, and transferred to PACU in stable condition. Postoperative Plan: She will be weightbearing as tolerated on the right lower extremity with posterior hip precautions. Physical Therapy will be consulted to aid with mobilization and we will consult inpatient rehab for placement. Complications: None Drain(s): Urinary catheter Implants: Biomet Bonita 14 press fit stem, 28x-3 mm head, 45 mm bipolar shell Fluids & blood products: per anesthesia record Transferred to: Recovery Room Condition: Good
[2023-06-26] MEDS: ATORVASTATIN 20 MG TAB PO SCH (21:49)
[2023-06-27 01:28] VITALS: BMI 26.6
[2023-06-27 02:55] LABS: Hematocrit 20.6 % (36.0-45.0)
[2023-06-27] MEDS: LEVOTHYROXINE SOD 0.1 MG TAB PO SCH (05:32)
[2023-06-27 07:42] VITALS: O2SAT 94
[2023-06-27] MEDS: SENOSIDES 8.6 MG TAB PO SCH (07:43)
[2023-06-27] MEDS: APIXABAN 2.5 MG TABLET PO SCH (07:43)
[2023-06-27 11:44] VITALS: BP 116/59; TEMP 97.1
--- NOTE | 2023-06-27 12:46 | P.DS ---
Admission Date: 06/20/23 Discharge Date: 06/27/23 Primary Care Provider: Dr. Griffiths Disposition: DC HOME/HOME HEALTH CARE Discharge Condition: FAIR Reason for Admission: s/p right hip te Brief History of Present Illness: Mrs. Chin is a 78 yo patient who stood from bed and fell. No LOC. Right leg externally rotated and shortened. X-ray of the hip demonstrated subcapital fracture right femur with moderate displacement fracture fragments and angulation present at fracture site. Dr. Rashid was phoned by the ED MD for consult. Patient admitted for further management. Dr. Mauro consulted for cardiac clearance for surgery. Hospital Course: Patient admitted to the medical floor and the following medical problems addressed: Diagnosis Right femoral fracture status post ORIF Hypertension Hypothyroidism Hyperlipidemia Right femoral fracture status post ORIF Status post ORIF by Dr. Rashid. Pain managed with [place]. Eliquis for DVT prophylaxis Patient participated in physical therapy and was able to walk 210 feet with a walker. Patient was denied inpatient rehab. She opted to go home with home health for PT. Clinically stable for discharge. Follow-up with Dr. Rashid within 3 to 4-weeks. Essential hypertension Blood pressures was well controlled. Resume home antihypertensives on discharge Hyperlipidemia/hypothyroidism Continued home medications. Functional constipation Managed with stool softeners and laxatives. Vital Signs/Physical Exam: Temp Pulse Resp BP Pulse Ox 97.1 F 94 H 16 116/59 L 95 06/27/23 11:43 06/27/23 11:43 06/27/23 11:43 06/27/23 11:43 06/27/23 11:43 General: Alert, In no apparent distress, Oriented x3 HEENT: Mucous membr. moist/pink Neck: Supple, JVD not distended Respiratory: Clear to auscultation bilaterally, Normal air movement Cardiovascular: No edema, Regular rate/rhythm, Normal S1 S2 Gastrointestinal: Normal bowel sounds, Soft and benign, Non-distended Musculoskeletal: No swelling Neurological: Normal strength at 5/5 x4 extr Laboratory Data at Discharge: WBC 5.40 thou/uL (4.3-10.9) 06/24/23 11:24 Hgb 7.3 g/dL (12.0-15.0) L 06/27/23 01:46 Hct 20.6 % (36.0-45.0) L 06/27/23 01:46 Plt Count 122 thou/uL (152-406) L 06/24/23 11:24 PT 12.6 SECONDS (9.5-12.5) H 06/21/23 01:50 INR 1.15 06/21/23 01:50 APTT 29.2 SECONDS (24.3-36.9) 06/21/23 01:50 Sodium 141 mEq/L (136-145) 06/24/23 11:24 Potassium 4.0 mEq/L (3.5-5.1) 06/24/23 11:24 BUN 22 mg/dL (7-18) H 06/24/23 11:24 Creatinine 0.97 mg/dL (0.55-1.02) 06/24/23 11:24 Glucose 114 mg/dL (74-106) H 06/24/23 11:24 Phosphorus 3.0 mg/dL (2.5-4.9) 06/21/23 01:50 Magnesium 2.2 mg/dL (1.6-2.4) 06/21/23 01:50 Total Bilirubin 0.6 mg/dL (0.2-1.0) 06/21/23 01:50 AST 44 U/L (15-37) H 06/21/23 01:50 ALT 32 U/L (13-56) 06/21/23 01:50 Alkaline Phosphatase 85 U/L (45-117) 06/21/23 01:50 Home Medications: Levothyroxine [Synthroid*] 0.1 mg PO DAILY 04/23/17 Multivitamin [Daily Multiple Vitamin] 1 tab PO DAILY 04/23/17 lisinopriL [Prinivil*] 5 mg PO DAILY 04/23/17 Simvastatin [Zocor] 40 mg PO BEDTIME 06/21/23 Apixaban [Eliquis *] 2.5 mg PO BID #48 tab 06/27/23 Hydrocodone 7.5/APAP 325 [[place] 7.5/325 mg*] 1 tab PO Q4H PRN #20 tab 06/27/23 Polyethyl Gly 3350 [Glycolax*] 17 gm PO DAILY PRN #30 packet 06/27/23 Senosides [Senokot*] 17.2 mg PO BID #120 tab 06/27/23 New Medications: Apixaban [Eliquis *] 2.5 mg PO BID #48 tab Polyethyl Gly 3350 [Glycolax*] 17 gm PO DAILY PRN #30 packet PRN Reason: Constipation Hydrocodone 7.5/APAP 325 [[place] 7.5/325 mg*] 1 tab PO Q4H PRN #20 tab PRN Reason: Pain Scale 8-10 (Severe) Senosides [Senokot*] 17.2 mg PO BID #120 tab Diet: AHA Activity: Fall precautions Followup: NONE,NONE [Primary Care Provider] - Milton Rashid MD [ACTIVE - CAN ADMIT] - (within 3-4 weeks) Time spent managing pt's care (in minutes): 34
== END 2023-06-27 13:45 | disposition home health service (06) | DRG 522 ==
LOC: ER 15:38 → ERHOLD 18:30 → 2ND 20:05
PROVIDERS: ADMIT Internal Medicine; ATTEND Internal Medicine
PROC: 0SRR0JZ Replacement of Right Hip Joint, Femoral Surface with Synthetic Substitute, Open Approach (ICD-10-PCS; principal; 2023-06-26)
DX: S72.041A Displaced fracture of base of neck of right femur, initial encounter for closed fracture (principal); I10 Essential (primary) hypertension; E03.9 Hypothyroidism, unspecified; E78.00 Pure hypercholesterolemia, unspecified; K59.04 Chronic idiopathic constipation; M19.90 Unspecified osteoarthritis, unspecified site; Z79.52 Long term (current) use of systemic steroids; Z90.11 Acquired absence of right breast and nipple; Z90.49 Acquired absence of other specified parts of digestive tract; Z79.890 Hormone replacement therapy; Z90.710 Acquired absence of both cervix and uterus; Z79.899 Other long term (current) drug therapy; W06.XXXA Fall from bed, initial encounter; Y93.89 Activity, other specified; Y92.9 Unspecified place or not applicable; Y99.9 Unspecified external cause status
CPT/HCPCS: 36415; 51702; 70450; 72125; 80048; 80053; 82947; 83735; 84100; 84484; 85014; 85018; 85025; 85610; 85730; 86850; 86870; 86900; 86901; 86902; 88304; 88311; 93005; 94010; 94760; 96374; 96375; 97110; 97116; 97162; 97165; 97530; 99285; A4216; J1650; J2001; J2405; J2704; J3010; J7030; J7050

== ENCOUNTER 2024-10-04 11:38 | Inpatient (IN) | payer OTHER ==
--- NOTE | 2024-10-04 12:51 | RAD REPORT ---
EXAM: Chest Single View HISTORY: 79 years Female DYSPNEA COMPARISON: 07/28/2022 FINDINGS: LUNGS/PLEURA: Increased airspace disease in the lung bases, left greater than right. CARDIAC/MEDIASTINUM: The cardiac silhouette is within normal limits. UPPER ABDOMEN: No significant abnormality. BONES: No acute abnormality. LINES/TUBES/OTHER: CODE OFFICIAL shunt overlies the left hemithorax. IMPRESSION: Increased opacities in the lung bases, left greater than right, could reflect pneumonia or pneumoniti s. Could consider a standard PA and lateral to exclude underpenetration as the etiology..
[2024-10-04] MEDS ORDERED: CEFAZOLIN SODIUM 1 GM/VIAL ONE (13:12)
[2024-10-04] MEDS ORDERED: NA CHLORIDE 0.9% 100 ML ONE (13:12)
[2024-10-04] MEDS ORDERED: NA CHLORIDE 0.9% 1,000 ML ONE (13:12)
[2024-10-04 13:45] LABS: PT Prothrombin Time 14.1 SECONDS (10.0-13.0); Protime INR 1.25
[2024-10-04 13:55] LABS: Absolute Lymphocytes (CBC) 1.2 K/uL (0.7-4.9); Absolute Monocytes 1.5 K/uL (0.1-1.3); Absolute Neutrophil 11.5 K/uL (1.8-8.0); Basophils % 0.1 % (0-1.3); Hematocrit 30.8 % (36.0-45.0); Hemoglobin 10.6 g/dL (12.0-15.0); Lymphocytes % 8.2 % (15.3-44.8); MCH 31.2 pg (27.0-35.0); MCHC 34.4 g/dL (32.0-36.0); MCV 90.7 fL (80-100); MPV 8.6 fL (7.6-11.3); Monocytes % 10.6 % (3.3-12.3); Neutrophils % 81.1 % (41.7-73.7); Platelets 260 thou/uL (152-406); Red Cell Distribution Width 13.4 % (12.1-15.2)
[2024-10-04 14:01] LABS: AST/SGOT 11 U/L (15-37); Albumin 2.9 g/dL (3.4-5.0); Albumin/Globulin Ratio 0.7 (1.1-1.8); Alkaline Phosphatase 99 U/L (45-117); Anion Gap 13.1 mEq/L (5.0-15.0); BUN Blood Urea Nitrogen 28 mg/dL (7-18); Bicarbonate 21 mEq/L (21-32); Bilirubin Direct 0.3 mg/dL (0-0.2); Bilirubin Indirect, Calculated 0.5 mg/dL (0.2-0.8); Bilirubin Total 0.8 mg/dL (0.2-1.0); Globulin 4.3 g/dL (2.3-3.5); Glomerular Filtration Rate 38 ml/min (=/>90); Glucose Level 111 mg/dL (74-106); NT PRO-BNP 6546 pg/mL (<450); Potassium 4.1 mEq/L (3.5-5.1); Protein, Total 7.2 g/dL (6.4-8.2); Sodium Level 143 mEq/L (136-145); Troponin High Sensitivity 12.8 pg/mL (<58.9)
[2024-10-04 14:02] LABS: ALT/SGPT < 14 U/L (13-56)
[2024-10-04 14:15] LABS: Influenza A Ag Negative; Influenza B Ag Negative; SARS-CoV-2 Antigen Rapid Res Negative (Negative)
--- NOTE | 2024-10-04 14:43 | ER ---
Nurse's Notes [facility] Name: Sangeetha Chin Age: 79 yrs Sex: Female : 1945 Arrival Date: 10/04/2024 Time: 11:38 Bed 19 Private MD: Diagnosis: Pneumonia, sepsis, CHF Presentation: 10/04 12:11 Chief complaint: Patient states: she has been having a head cold in her head and lungs ap3 for over a week to 10 days. patient states "i have also hardly been pee'n and poop'n, I don't feel good. I might have had the flu two weeks ago.". Coronavirus screen: At this time, the client does not indicate any symptoms associated with coronavirus-19. Ebola Screen: No symptoms or risks identified at this time. Initial Sepsis Screen: Does the patient meet any 2 criteria? RR > 20 per min. HR > 90 bpm. Does the patient have a suspected source of infection? No. Patient's initial sepsis screen is negative. Risk Assessment: Do you want to hurt yourself or someone else? Patient reports no desire to harm self or others. Onset of symptoms is unknown. 12:11 Method Of Arrival: Wheelchair ap3 12:11 Acuity: PAVITHRA 2 ap3 Triage Assessment: 12:18 General: Appears ill, Behavior is appropriate for age. Pain: Complains of pain in ap3 generalized body aches. Neuro: Level of Consciousness is awake, alert, obeys commands, Oriented to person, place, time, situation, Appropriate for age Speech is normal. Cardiovascular: Patient's skin is warm and dry. Respiratory: Reports shortness of breath cough that is Airway is patent Respiratory effort is even, labored, Respiratory pattern is regular, symmetrical, tachypnea Onset: The symptoms/episode began/occurred gradually. 14:05 Respiratory: kj2 Historical: - Allergies: 12:18 No Known Allergies; ap3 - PMHx: 12:18 Arthritis; High Cholesterol; hydrocephelus; Hypertension; Hypothyroidism; ap3 - Immunization history:: Client reports receiving the 2nd dose of the Covid vaccine, Flu vaccine status is unknown. - Infectious Disease History:: Denies. - Social history:: Smoking status: Patient denies any tobacco usage or history of. Screenin:15 [facility] ED Fall Risk Assessment (Adult) History of falling in the last 3 months, kj2 including since admission No falls in past 3 months (0 pts) Confusion or Disorientation No (0 pts) Intoxicated or Sedated No (0 pts) Impaired Gait No (0 pts) Mobility Assist Device Used No (0 pt) Altered Elimination No (0 pt) Score/Fall Risk Level 0 - 2 = Low Risk Maintained a safe environment, Hourly rounding (assess needs \\T\\ fall precautionary measures) done. 12:19 Abuse screen: Denies threats or abuse. Nutritional screening: No deficits noted. ap3 Tuberculosis screening: No symptoms or risk factors identified. Assessment: 12:15 General: Appears in no apparent distress. Behavior is calm, cooperative. Pain: Denies kj2 pain. Neuro: Level of Consciousness is awake, Oriented to person, place, time, situation. Cardiovascular: Patient's skin is warm and dry. Cardiovascular: Rhythm is. Respiratory: Reports shortness of breath at rest. Respiratory: Airway is patent Respiratory effort is even, unlabored. GI: No signs and/or symptoms were reported involving the gastrointestinal system. : No signs and/or symptoms were reported regarding the genitourinary system. 13:15 Reassessment: Patient appears in no apparent distress at this time. Patient and/or kj2 family updated on plan of care and expected duration. Pain level reassessed. Patient is alert, oriented x 3, equal unlabored respirations, skin warm/dry/pink. 14:17 Reassessment: Patient appears in no apparent distress at this time. Patient and/or kj2 family updated on plan of care and expected duration. Pain level reassessed. Patient is alert, oriented x 3, equal unlabored respirations, skin warm/dry/pink. Vital Signs: 12:11 BP 124 / 87; Pulse 110; Resp 24; Temp 97.9; Pulse Ox 95% on R/A; Weight 75.75 kg; ap3 Height 5 ft. 9 in. ; Pain 3/10; 13:15 BP 130 / 68; Pulse 112; Resp 20; Pulse Ox 95% on R/A; kj2 12:11 Body Mass Index 24.66 (75.75 kg, 175.26 cm) ap3 12:11 Pain Scale: Adult ap3 ED Course: 11:42 Patient arrived in ED. mr 11:49 Mtira eClaya MD is Attending Physician. sp3 12:15 Patient has correct armband on for positive identification. Bed in low position. Call kj2 light in reach. Adult w/ patient. Provided Education on: call light. 12:15 No provider procedures requiring assistance completed. Missed attempt(s): 20 gauge in kj2 left antecubital area. 12:18 Triage completed. ap3 12:20 Arm band placed on right wrist. ap3 12:30 XRAY Chest (1 view) In Process Unspecified. EDMS 13:03 An De Souza RN is Primary Nurse. kj2 14:06 Blood Culture Adult (2) Sent. kj2 14:06 Lactate w/ 2H reflex if indic. Sent. kj2 14:06 COVID-19 Ag + Flu A+B Ag Sent. kj2 14:06 Initial lab(s) drawn, by me, sent to lab. Accessed peripheral vein via ultrasound, hb utilizing dynamic ultrasound technique using 20G Nexia IV catheter per hospital protocol. Good blood return. Flushes easily. RIGHT AC. 14:42 Daysi Starks MD is Hospitalizing Provider. sp3 Administered Medications: 13:55 Drug: NS 0.9% IV 1000 ml IV at 1000 ml once; to be given as a bolus over 60 minutes kj2 Route: IV; Rate: 1000 ml; Site: left antecubital; 16:38 Follow up: IV Status: Completed infusion; IV Intake: 1000ml kj2 13:55 Drug: Cefepime IVPB 1 grams IVPB at 200 ml/hr once over 30 mins; (mix in NS 100 mL) kj2 Route: IVPB; Rate: 200 ml/hr; Infused Over: 30 mins; Site: right antecubital; 16:38 Follow up: IV Status: Completed infusion; IV Intake: 100ml kj2 Medication: 14:25 VIS not applicable for this client. kj2 Intake: 16:38 IV: 100ml; Total: 100ml. kj2 16:38 IV: 1000ml; Total: 1100ml. kj2 Outcome: 14:43 Decision to Hospitalize by Provider. sp3 10/05 13:00 Patient left the ED. aa5 Signatures: Dispatcher [employer] EDHI PradoLynne, Reg Reg Judi Alexandre, RN RN aa5 Jenna Matamoros RN RN Chastity Kim RN RN ap3 Mitra Celaya MD MD sp3 An De Souza RN RN kj2 Corrections: (The following items were deleted from the chart) 10/04 15:32 14:06 Accessed peripheral vein via ultrasound, utilizing dynamic ultrasound technique hb using 20G Nexia IV catheter per hospital protocol. Good blood return. Flushes easily. hb
--- NOTE | 2024-10-04 14:43 | EDPHYS ---
Physician Documentation [facility] Name: Sangeetha Chin Age: 79 yrs Sex: Female : 1945 Arrival Date: 10/04/2024 Time: 11:38 Bed 19 Private MD: ED Physician Mitra Celaya HPI: 10/04 12:25 This 79 yrs old Female presents to ER via Wheelchair with complaints of Shortness Of sp3 Breath, Congestion. 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 Patient states that she had influenza diagnosed 2 weeks ago and is not gotten better and is progressively gotten worse. She has green sputum on deep cough. She denies any fever, chest pain, back pain, Yvan pain, vomiting, diarrhea, rash or any other signs or symptoms on ROS at this time. Dyspnea is worse on exertion she states that her urine output has decreased.. Historical: - Allergies: 12:18 No Known Allergies; ap3 - PMHx: 12:18 Arthritis; High Cholesterol; hydrocephelus; Hypertension; Hypothyroidism; ap3 - Immunization history:: Client reports receiving the 2nd dose of the Covid vaccine, Flu vaccine status is unknown. - Infectious Disease History:: Denies. - Social history:: Smoking status: Patient denies any tobacco usage or history of. ROS: 12:26 Constitutional: Negative for fever, chills, and weight loss, Eyes: Negative for injury, sp3 pain, redness, and discharge, Neck: Negative for injury, pain, and swelling, Abdomen/GI: Negative for abdominal pain, nausea, vomiting, diarrhea, and constipation, Back: Negative for injury and pain, MS/Extremity: Negative for injury and deformity, Skin: Negative for injury, rash, and discoloration, Neuro: Negative for headache, weakness, numbness, tingling, and seizure, Psych: Negative for depression, anxiety, suicide ideation, homicidal ideation, and hallucinations, Allergy/Immunology: Negative for hives, rash, and allergies, Endocrine: Negative for neck swelling, polydipsia, polyuria, polyphagia, and marked weight changes, 12:26 All other systems are negative, Exam: 12:26 Constitutional: This is a well developed, well nourished patient who is awake, alert, sp3 and in no acute distress. Head/Face: Normocephalic, atraumatic. Eyes: Pupils equal round and reactive to light, extra-ocular motions intact. Lids and lashes normal. Conjunctiva and sclera are non-icteric and not injected. Cornea within normal limits. Periorbital areas with no swelling, redness, or edema. Neck: Trachea midline, no thyromegaly or masses palpated, and no cervical lymphadenopathy. Supple, full range of motion without nuchal rigidity, or vertebral point tenderness. No Meningismus. Chest/axilla: Normal chest wall appearance and motion. Nontender with no deformity. No lesions are appreciated. Abdomen/GI: Soft, non-tender, with normal bowel sounds. No distension or tympany. No guarding or rebound. No evidence of tenderness throughout. Back: No spinal tenderness. No costovertebral tenderness. Full range of motion. Skin: Warm, dry with normal turgor. Normal color with no rashes, no lesions, and no evidence of cellulitis. MS/ Extremity: Pulses equal, no cyanosis. Neurovascular intact. Full, normal range of motion. Neuro: Awake and alert, GCS 15, oriented to person, place, time, and situation. Cranial nerves II-XII grossly intact. Motor strength 5/5 in all extremities. Sensory grossly intact. Cerebellar exam normal. Normal gait. 12:26 Respiratory: Rhonchi bilaterally and productive cough noted. Patient tachycardic at 110. Respiratory rate currently at 18-20 with 95% room air pulse oxygenation., 14:03 ECG was reviewed by the Attending Physician. EKG demonstrates atrial fibrillation at sp3 112 bpm with normal intervals absent [place], normal axis, normal QRS, nonspecific diffuse ST/T-segment's without evidence of acute ischemia. Vital Signs: 12:11 BP 124 / 87; Pulse 110; Resp 24; Temp 97.9; Pulse Ox 95% on R/A; Weight 75.75 kg; ap3 Height 5 ft. 9 in. ; Pain 3/10; 13:15 BP 130 / 68; Pulse 112; Resp 20; Pulse Ox 95% on R/A; kj2 12:11 Body Mass Index 24.66 (75.75 kg, 175.26 cm) ap3 12:11 Pain Scale: Adult ap3 MDM: 12:06 Medical Screening Exam initiated sp3 12:27 Data reviewed: vital signs, nurses notes, old medical records, lab test result(s), EKG, sp3 radiologic studies. ED course: 79-year-old female with PMH above now with dyspnea, cough and congestion. Differential diagnosis includes pneumonia, bronchitis, viral illness, COVID-19, influenza, CHF, ACS, among others. Workup will include EKG, chest x-ray, swabs, labs, and treatment will include antibiotics as indicated, IV fluid resuscitation and general supportive care. Disposition probable admission pending workup and patient course.. 10/04 12:07 Order name: Basic Metabolic Panel; Complete Time: 14:33 sp3 10/04 12:07 Order name: CBC with Diff; Complete Time: 13:58 sp3 10/04 12:07 Order name: LFT's; Complete Time: 14:33 3 10/04 12:07 Order name: Magnesium; Complete Time: 14:33 3 10/04 12:07 Order name: NT PRO-BNP; Complete Time: 14:33 3 10/04 12:07 Order name: PT-INR; Complete Time: 13:58 sp3 10/04 12:07 Order name: Troponin HS; Complete Time: 14:33 sp3 10/04 12:07 Order name: COVID-19 Ag + Flu A+B Ag; Complete Time: 14:33 sp3 10/04 12:24 Order name: Lactate w/ 2H reflex if indic.; Complete Time: 14:33 3 10/04 12:24 Order name: Blood Culture Adult (2) 3 10/04 15:12 Order name: Magnesium [facility] 10/04 15:12 Order name: Phosphorus [facility] 10/04 15:12 Order name: Urinalysis w/ reflexes [facility] 10/04 15:12 Order name: Basic Metabolic Panel [facility] 10/04 15:12 Order name: Basic Metabolic Panel [facility] 10/04 15:12 Order name: Basic Metabolic Panel [facility] 10/04 15:12 Order name: Basic Metabolic Panel [facility] 10/04 15:12 Order name: CBC with Automated Diff [facility] 10/04 15:12 Order name: CBC with Automated Diff [facility] 10/04 15:12 Order name: CBC with Automated Diff [facility] 10/04 15:12 Order name: CBC with Automated Diff [facility] 10/04 15:12 Order name: NT PRO-BNP [facility] 10/04 15:12 Order name: NT PRO-BNP [facility] 10/04 15:12 Order name: Protime (+INR) [facility] 10/04 15:12 Order name: Protime (+INR) [facility] 10/04 16:30 Order name: Glucose, Ancillary Testing [facility] 10/04 12:07 Order name: XRAY Chest (1 view); Complete Time: 12:52 sp3 10/04 15:12 Order name: Physical Therapy Consult [facility] 10/04 15:12 Order name: EKG Electrocardiogram [facility] 10/04 15:12 Order name: EKG Electrocardiogram [facility] 10/04 12:07 Order name: Cardiac monitoring; Complete Time: 14:25 sp3 10/04 12:07 Order name: EKG - Nurse/Tech; Complete Time: 13:19 sp3 10/04 12:07 Order name: IV Saline Lock; Complete Time: 13:19 sp3 10/04 12:07 Order name: Labs collected and sent; Complete Time: 14:06 sp3 10/04 12:07 Order name: O2 Per Protocol; Complete Time: 12:20 sp3 10/04 12:07 Order name: O2 Sat Monitoring; Complete Time: 12:20 sp3 Administered Medications: 13:55 Drug: NS 0.9% IV 1000 ml IV at 1000 ml once; to be given as a bolus over 60 minutes kj2 Route: IV; Rate: 1000 ml; Site: left antecubital; 16:38 Follow up: IV Status: Completed infusion; IV Intake: 1000ml kj2 13:55 Drug: Cefepime IVPB 1 grams IVPB at 200 ml/hr once over 30 mins; (mix in NS 100 mL) kj2 Route: IVPB; Rate: 200 ml/hr; Infused Over: 30 mins; Site: right antecubital; 16:38 Follow up: IV Status: Completed infusion; IV Intake: 100ml kj2 Disposition Summary: 10/04/24 14:43 Hospitalization Ordered Notes: Hospitalization Status: Inpatient Admission sp3 Provider: Daysi Starks sp3 Condition: Stable sp3 Problem: an acute exacerbation sp3 Symptoms: have worsened sp3 Bed/Room Type: Standard 3 Location: Telemetry/MedSurg (Inpatient)(10/05/24 10:56) eb Room Assignment: 431(10/05/24 10:56) eb Diagnosis - Pneumonia, sepsis, CHF sp3 Forms: - Medication Reconciliation Form sp3 - SBAR form sp3 - Leadership Thank You Letter sp3 Signatures: Dispatcher [employer] EDMS Chastity Kim RN RN ap3 Cassidy Crandall Setul, MD MD sp3 Ilsa Gloria rv1 An De Souza RN RN kj2 Corrections: (The following items were deleted from the chart) 12:08 12:08 BASIC METABOLIC PANEL+C.LAB.BRZ ordered. EDMS EDMS 12:08 12:08 CBC+H.LAB.BRZ ordered. EDMS EDMS 12:08 12:08 HEPATIC FUNCTION+C.LAB.BRZ ordered. EDMS EDMS 12:08 12:08 MAGNESIUM+C.LAB.BRZ ordered. EDMS EDMS 12:08 12:08 PROBNP+C.LAB.BRZ ordered. EDMS EDMS 12:08 12:08 PROTIME (+INR)+COAG.LAB.BRZ ordered. EDMS EDMS 12:08 12:08 Troponin High Sensitivity+C.LAB.BRZ ordered. EDMS EDMS 12:08 12:08 COVID-19 Ag + Flu A+B Ag+I.LAB.BRZ ordered. EDMS EDMS 12:08 12:08 Chest Single View+RAD.RAD.BRZ ordered. EDMS EDMS 12:24 12:24 LACTATE+C.LAB.BRZ ordered. EDMS EDMS 12:24 12:24 BLOOD CULTURE*+BA.LAB.BRZ ordered. EDMS EDMS 19:18 14:43 Telemetry/MedSurg (Inpatient) sp3 rv1 19:18 14:43 sp3 rv1 10/05 10:56 10/04 19:18 [facility] ER HOLD rv1 eb 10/05 10:56 10/04 19:18 ERHOLD- rv1 eb
[2024-10-04] MEDS ORDERED: SODIUM CHLORIDE 0.9% 10ML INJ IV PRN (15:11)
--- NOTE | 2024-10-04 15:18 | P.HP ---
Certification for Inpatient Patient admitted to: Observation With expected LOS: <2 Midnights Patient will require the following post-hospital care: None Practitioner: I am a practitioner with admitting privileges, knowledge of patient current condition, hospital course, and medical plan of care. Services: Services provided to patient in accordance with Admission requirements found in Title 42 Section 412.3 of the Code of Federal Regulations <J Carlos Videssridhar - Last Filed: 10/04/24 15:13> Patient History Date of Service: 10/04/24 Reason for admission: Shortness of breath History of Present Illness: Patient is a 79-year-old female with past medical history of hypothyroidism, breast cancer , cataract, atrial fibrillation, hypertension, and high cholesterol who reports to the ED with complaints of shortness of breath. Patient was recently diagnosed with flu a few weeks ago and has progressively gotten worse since diagnosis. Reports poor p.o. intake and feeling lethargic over the last week. ED workup showed chest x-ray with increased opacities in lung bases left greater than right with possible pneumonia/pneumonitis, WBCs 14.2, neutrophils 11.5, lactate 1.5, BNP 6546, creatinine 1.41 and patient requiring supplemental oxygen. Patient is now being admitted for pneumonia at this time. Home medications list reviewed: Yes - Past Medical/Surgical History Has patient received pneumonia vaccine in the past: Yes (Atrial fibrillation, hypothyroidism, cataract, hypertension, breast cancer ,high cholesterol, surgical history of appendectomy, hip surgery, ) Diabetic: No -: breast ca -: HTN -: hypothyroid -: hyperlipidemia -: hydrocephalus with shunt to left side -: R mastectomy with lymph node removal -: R knee sx x 2 -: appendectomy -: hysterectomy -: -: cholecystectomy Psychosocial/ Personal History: Lives at home with her - Family History Father -: Heart disease Mother -: Heart disease - Social History Alcohol use: No CD- Drugs: No Caffeine use: Yes <Alejandro Vides - Last Filed: 10/04/24 15:13> Date of Service: 10/04/24 <Daysi Starks - Last Filed: 10/04/24 16:58> Allergies No Known Allergies Allergy (Verified 07/28/22 09:48) Home Medications: Levothyroxine [Synthroid*] 0.1 mg PO DAILY 04/23/17 Multivitamin [Daily Multiple Vitamin] 1 tab PO DAILY 04/23/17 lisinopriL [Prinivil*] 5 mg PO DAILY 04/23/17 Simvastatin [Zocor] 40 mg PO BEDTIME 06/21/23 Apixaban [Eliquis *] 2.5 mg PO BID #48 tab 06/27/23 Hydrocodone 7.5/APAP 325 [[place] 7.5/325 mg*] 1 tab PO Q4H PRN #20 tab 06/27/23 Polyethyl Gly 3350 [Glycolax*] 17 gm PO DAILY PRN #30 packet 06/27/23 Senosides [Senokot*] 17.2 mg PO BID #120 tab 06/27/23 Review of Systems 10-point ROS is otherwise unremarkable General: Sweats ENT: Nose Congestion Respiratory: Cough, Shortness of Breath, SOB with Excertion, Sputum Cardiovascular: Orthopnea Gastrointestinal: Other (poor appetite) Genitourinary: Other (little urine output ) <Alejandro Vides - Last Filed: 10/04/24 15:13> Physical Examination - Physical Exam General: Alert, In no apparent distress, Oriented x3, Other (hard of hearing. Bilat hearing aids ) Neck: Supple, 2+ carotid pulse no bruit, No LAD, Without JVD or thyroid abnormality Respiratory: Diminished, Crackles/rales Cardiovascular: No edema, Irregular heart rate/rhythm (A-fib rate controlled ) Capillary refill: <2 Seconds Gastrointestinal: Normal bowel sounds, No tenderness Musculoskeletal: No tenderness Integumentary: No rashes Neurological: Normal speech, Normal strength at 5/5 x4 extr, Normal affect External genitalia: Deferred - Studies Laboratory Data (last 24 hrs) 10/04/24 10/04/24 10/04/24 13:44 13:25 13:25 WBC 14.20 H Hgb 10.6 L Hct 30.8 L Plt Count 260 PT 14.1 H INR 1.25 Sodium 143 Potassium 4.1 BUN 28 H Creatinine 1.41 H Glucose 111 H Magnesium 2.0 Total Bilirubin 0.8 AST 11 L ALT < 14 Alkaline Phosphatase 99 <Alejandro Vides - Last Filed: 10/04/24 15:13> - Studies Laboratory Data (last 24 hrs) 10/04/24 10/04/24 10/04/24 13:44 13:25 13:25 WBC 14.20 H Hgb 10.6 L Hct 30.8 L Plt Count 260 PT 14.1 H INR 1.25 Sodium 143 Potassium 4.1 BUN 28 H Creatinine 1.41 H Glucose 111 H Magnesium 2.0 Total Bilirubin 0.8 AST 11 L ALT < 14 Alkaline Phosphatase 99 <Daysi Starks - Last Filed: 10/04/24 16:58> Assessment and Plan - Problems (Diagnosis) (1) Pneumonia Current Visit: Yes Status: Acute Plan: 1. Pneumonia -Chest x-ray shows basilar opacities left greater than -Elevated WBC 14.2, neutrophils 11.5, lactate 1.5 -Pulmonology consulted, follow-up for recs needed -Blood cultures pending, follow-up needed -Elevated BNP 6546, follow-up BMP ordered for AM -Respiratory panel; negative -Continue with supplemental oxygen and wean for goal >94% -Continuous pulse ox monitor -Cefepime initiated in ED, continue for now -Patient reports recent diagnosis of Influenza A 2. Acute kidney injury -Secondary to infection/dehydration -Creatinine 1.41 -Previous admission creatinine 0.94-1.33 -1 L fluid bolus in ED -Continue to monitor kidney function -Urinalysis ordered -Avoid nephrotoxic agents -Monitor intake/output 3. Atrial Fibrillation -Chronic history -EKG with A-fib, repeat EKG ordered for AM -Currently rate controlled at bedside -Continue home med Eliquis -Continue to monitor on telemetry 4. Hx of Hypothyroidism -Continue home Levothyroxine once verified 5. History of Hypertension History Hyperlipidemia -Continue home lisinopril and atorvastatin once verified -Monitor blood pressure per unit protocol -Heart healthy diet DVT Ppx: Home Eliquis GI Ppx: IV Protonix Code Status: DNR Qualifiers: Pneumonia type: due to influenza A virus Qualified Code(s): J10.00 - Influenza due to other identified influenza virus with unspecified type of pneumonia Discharge Plan: Home Plan to discharge in: 24 Hours - Advance Directives Does patient have a Living Will: Yes Does patient have a Durable POA for Healthcare: No - Code Status/Comfort Care Code Status Assessed: Yes (DNR) Critical Care: No <Alejandro Vides - Last Filed: 10/04/24 15:13> Physician Review: Patient Assessed, Agree with Above Assessment and Plan <Daysi Starks - Last Filed: 10/04/24 16:58>
[2024-10-04 15:49] LABS: Magnesium 1.8 mg/dL (1.6-2.4); Phosphorus 2.4 mg/dL (2.5-4.9)
[2024-10-04] MEDS ORDERED: POLYETHYL GLY 3350 17 GM/DOSE PO PRN (17:59)
[2024-10-04] MEDS: APIXABAN 2.5 MG TABLET PO SCH (21:00)
[2024-10-04] MEDS: ATORVASTATIN 20 MG TAB PO SCH (21:00)
[2024-10-04] MEDS ORDERED: SIMVASTATIN 40 MG PO SCH (21:00)
[2024-10-04] MEDS: SENOSIDES 8.6 MG TAB PO SCH (21:00)
[2024-10-04] MEDS ORDERED: ATORVASTATIN 20 MG TAB ONE (22:33)
[2024-10-04] MEDS ORDERED: APIXABAN 2.5 MG TABLET ONE (22:33)
[2024-10-04 23:12] LABS: Specific Gravity 1.024 (1.005-1.030); Sqamous Epithelial <5 /HPF (None Seen); Urine Bacteria None Seen /HPF (<20); Urine Bilirubin NEGATIVE (Negative); Urine Blood 2+ (Negative); Urine Clarity Extremely Turbid (Clear); Urine Color Yellow (Yellow); Urine Crystals Unidentified Few /HPF (None Seen); Urine Culture Reflex Order REFLEXED; Urine Glucose NEGATIVE (Negative); Urine Ketones TRACE (Negative); Urine Microscopic Reflex YN ORDER UMIC; Urine Mucus 1+ /HPF (None Seen); Urine Nitrite NEGATIVE (Negative); Urine Protein 1+ (Negative); Urine RBC 21-50 /HPF (None Seen); Urine Urobilinogen Normal (Normal); Urine WBC 20-50 /HPF (<5); Urine WBC Clump Occasional /HPF (None Seen); Urine pH 5.5 (5.0-7.0)
[2024-10-05] MEDS ORDERED: ACETAMINOPHEN 325 MG TABLET ONE (04:31)
[2024-10-05] MEDS: ACETAMINOPHEN 325 MG TABLET PO PRN (04:39)
[2024-10-05] MEDS: LEVOTHYROXINE SOD 0.1 MG TAB PO SCH (07:40)
[2024-10-05 07:56] LABS: Absolute Lymphocytes (CBC) 1.1 K/uL (0.7-4.9); Absolute Monocytes 1.3 K/uL (0.1-1.3); Absolute Neutrophil 10.5 K/uL (1.8-8.0); Basophils % 0.1 % (0-1.3); Eosinophils % 0.1 % (0-4.4); Hematocrit 28.5 % (36.0-45.0); Hemoglobin 9.6 g/dL (12.0-15.0); Lymphocytes % 8.5 % (15.3-44.8); MCH 31.2 pg (27.0-35.0); MCHC 33.6 g/dL (32.0-36.0); MCV 92.8 fL (80-100); MPV 8.3 fL (7.6-11.3); Monocytes % 9.9 % (3.3-12.3); Neutrophils % 81.4 % (41.7-73.7); Platelets 253 thou/uL (152-406); RBC Red Blood Cell Count 3.07 M/uL (3.86-4.86); Red Cell Distribution Width 13.5 % (12.1-15.2)
[2024-10-05 07:58] LABS: PT Prothrombin Time 16.9 SECONDS (10.0-13.0); Protime INR 1.51
[2024-10-05] MEDS ORDERED: PANTOPRAZOLE 40 MG INJ ONE (07:58)
[2024-10-05 08:08] LABS: Anion Gap 8.7 mEq/L (5.0-15.0); Potassium 3.7 mEq/L (3.5-5.1)
[2024-10-05] MEDS: PANTOPRAZOLE 40 MG INJ IVP SCH (08:56)
[2024-10-05] MEDS ORDERED: MULTIVITAMIN TAB PO SCH (09:00)
[2024-10-05] MEDS ORDERED: MULTIVITAMIN PO SCH (09:00)
[2024-10-05] MEDS ORDERED: lisinopriL 5 MG TAB PO SCH (09:00)
[2024-10-05] MEDS ORDERED: NA CHLORIDE 0.9% 100 ML ONE (09:38)
[2024-10-05] MEDS ORDERED: DOXYCYCLINE 100 MG CAP PO ONE (09:38)
[2024-10-05] MEDS ORDERED: CEFTRIAXONE 1000 MG/VIAL ONE (09:38)
[2024-10-05] MEDS: DOXYCYCLINE 100 MG CAP PO SCH (09:45)
[2024-10-05] MEDS: CEFTRIAXONE 1,000 MG in NA CHLORIDE 0.9% 50 ML IVPB SCH (09:45)
--- NOTE | 2024-10-05 18:54 | P.PN ---
Subjective Date of Service: 10/05/24 Chief Complaint: Shortness of breath Subjective: No new changes No complaints Review of Systems 10-point ROS is otherwise unremarkable Physical Examination - Vital Signs Temperature: 98 F Blood Pressure: 116/81 Pulse: 97 Respirations: 18 Pulse Ox (%): 96 - Physical Exam General: Alert, Oriented x3 HEENT: Atraumatic Neck: Supple Respiratory: Diminished Cardiovascular: No edema, Regular rate/rhythm Gastrointestinal: Normal bowel sounds Musculoskeletal: No clubbing, No swelling, No erythema - Studies Laboratory Data (last 24 hrs) 10/05/24 10/05/24 10/05/24 07:32 07:32 07:32 WBC 12.90 H Hgb 9.6 L D Hct 28.5 L Plt Count 253 PT 16.9 H INR 1.51 Sodium 143 Potassium 3.7 BUN 28 H Creatinine 1.18 H Glucose 106 Assessment And Plan - Plan 1. Pneumonia -Chest x-ray shows basilar opacities left greater than -Elevated WBC 14.2, neutrophils 11.5, lactate 1.5 -Respiratory panel; negative -Continue with supplemental oxygen and wean for goal >94% -Continuous pulse ox monitor -Cefepime initiated 2. Acute kidney injury -Secondary to infection/dehydration -Creatinine 1.41 on admission -currently at 1.1 with IVFs 3. Atrial Fibrillation -Chronic history -Currently rate controlled at bedside -Continue home med Eliquis 4. Hx of Hypothyroidism -Continue home Levothyroxine once verified 5. History of Hypertension History Hyperlipidemia -Continue home lisinopril and atorvastatin once verified -Monitor blood pressure per unit protocol -Heart healthy diet DVT Ppx: Home Eliquis GI Ppx: IV Protonix Physician Review: Patient Assessed, Agree with Above Assessment and Plan
[2024-10-06] MEDS: METOPROLOL TARTRATE 5 MG/5 ML INJ IV STA (04:48)
[2024-10-06 05:34] LABS: Absolute Eosinophils 0.1 K/uL (0-0.5); Absolute Monocytes 1.1 K/uL (0.1-1.3); Absolute Neutrophil 9.8 K/uL (1.8-8.0); Basophils % 0.2 % (0-1.3); Eosinophils % 1.1 % (0-4.4); Hematocrit 29.8 % (36.0-45.0); Hemoglobin 10.2 g/dL (12.0-15.0); Lymphocytes % 8.4 % (15.3-44.8); MCH 31.7 pg (27.0-35.0); MCHC 34.3 g/dL (32.0-36.0); MCV 92.3 fL (80-100); MPV 8.2 fL (7.6-11.3); Monocytes % 9.4 % (3.3-12.3); Neutrophils % 80.9 % (41.7-73.7); Platelets 304 thou/uL (152-406); RBC Red Blood Cell Count 3.22 M/uL (3.86-4.86); Red Cell Distribution Width 13.5 % (12.1-15.2)
[2024-10-06 05:54] LABS: Anion Gap 9.3 mEq/L (5.0-15.0); Magnesium 2.1 mg/dL (1.6-2.4); Phosphorus 2.4 mg/dL (2.5-4.9); Potassium 4.3 mEq/L (3.5-5.1)
[2024-10-06] MEDS: METOPROLOL TAR 25 MG TAB PO SCH (09:47)
--- NOTE | 2024-10-06 10:41 | P.CNS ---
Date of Consult: 10/06/24 Reason for Consult: Shortness of breath Chief Complaint: Shortness of breath History of Present Illness: Patient is 79 years of age has been sick for about a month complaining of cough shortness of breath most with the flu here in the hospital pneumonia better today prior history of cardiopulmonary problems has never smoked Allergies No Known Allergies Allergy (Verified 07/28/22 09:48) Home Medications: Levothyroxine [Synthroid*] 0.1 mg PO DAILY 04/23/17 Multivitamin [Daily Multiple Vitamin] 1 tab PO DAILY 04/23/17 lisinopriL [Prinivil*] 2.5 mg PO DAILY 04/23/17 Simvastatin [Zocor] 40 mg PO BEDTIME 06/21/23 Polyethyl Gly 3350 [Glycolax*] 17 gm PO DAILY PRN #30 packet 06/27/23 Senosides [Senokot*] 17.2 mg PO BID #120 tab 06/27/23 - Past Medical/Surgical History Diabetic: No -: breast ca -: HTN -: hypothyroid -: hyperlipidemia -: hydrocephalus with shunt to left side -: R mastectomy with lymph node removal -: R knee sx x 2 -: appendectomy -: hysterectomy -: -: cholecystectomy Psychosocial/ Personal History: Lives at home with her - Family History Father Medical History: Heart disease Mother Medical History: Heart disease - Social History Alcohol use: No CD- Drugs: No Caffeine use: Yes Review of Systems 10-point ROS is otherwise unremarkable General: Weakness Respiratory: Cough, Shortness of Breath Physical Examination Temp Pulse Resp BP Pulse Ox 98.4 F 119 H 18 140/85 94 10/06/24 08:00 10/06/24 09:47 10/06/24 08:00 10/06/24 09:47 10/06/24 08:00 General: Alert, Oriented x3 Neck: Supple Respiratory: Clear to auscultation bilaterally, Diminished Cardiovascular: No edema, Regular rate/rhythm, Normal S1 S2 Gastrointestinal: Normal bowel sounds, Soft and benign, Non-distended Integumentary: No rashes, No breakdown - Problems (1) Pneumonia Current Visit: Yes Status: Acute Plan: Patient is 79 years of age diagnosed with influenza been having problems for the past month. With cough shortness of breath right lower lobe pneumonia and is improving white count declining vital signs oxygenation satisfactory to ambulate check room air pulse ox possible discharge a.m. on Augmentin and azithromycin Qualifiers: Pneumonia type: due to influenza A virus Qualified Code(s): J10.00 - Influenza due to other identified influenza virus with unspecified type of pneumonia
[2024-10-06] MEDS: POTASS/SODIUM PHOSPHATE 1 PKT POWD.PACK PO SCH (12:18)
--- NOTE | 2024-10-06 13:54 | P.PN ---
Subjective Date of Service: 10/06/24 Chief Complaint: Shortness of breath Subjective: No chest pain. shortness of breath improving. No nausea or vomiting. No abdominal pain. No obvious bleeding. Looks comfortable in the bed. Objective: General appearance: Alert and comfortable CVS: Normal S1 and S2 Lungs: Clear to auscultation bilaterally Abdomen: Soft, bowel sounds present, no tenderness Extremities: No lower extremity edema Physical Examination - Vital Signs Temperature: 98 F Blood Pressure: 114/70 Pulse: 101 Respirations: 17 Pulse Ox (%): 95 Assessment And Plan - Plan 1. Pneumonia -cont ABX, WBC improving -Respiratory panel; negative -Continue with supplemental oxygen and wean off as able -Continuous pulse ox monitor 2. Acute kidney injury -Secondary to infection/dehydration -improving with IVFs 3. Atrial Fibrillation -Chronic history -Currently rate not controlled, started metoprolol - not on Eliquis or rate control meds in the med list 4. Hx of Hypothyroidism -Continue home Levothyroxine 5. History of Hypertension History Hyperlipidemia -started lopressor 6. CHronia anemia: monitor 7. Microscopic hematuria: Follow-up with PCP 8. Hypophosphatemia: Replace and monitor. Plan discussed with the patient and family at bedside, DC home soon once clinically better. Physician Review: Patient Assessed, Agree with Above Assessment and Plan
[2024-10-06] MEDS: POTASSIUM PHOS IN 0.9 % NACL 15 MMOL/250 ML BAG IV ONE (14:27)
[2024-10-07 06:15] LABS: Absolute Eosinophils 0.1 K/uL (0-0.5); Absolute Lymphocytes (CBC) 1.3 K/uL (0.7-4.9); Absolute Monocytes 1.3 K/uL (0.1-1.3); Absolute Neutrophil 9.1 K/uL (1.8-8.0); Basophils % 0.3 % (0-1.3); Eosinophils % 0.7 % (0-4.4); Hematocrit 30.6 % (36.0-45.0); Hemoglobin 10.4 g/dL (12.0-15.0); Lymphocytes % 11.3 % (15.3-44.8); MCHC 33.9 g/dL (32.0-36.0); MCV 91.3 fL (80-100); MPV 8.7 fL (7.6-11.3); Neutrophils % 76.7 % (41.7-73.7); Platelets 341 thou/uL (152-406); RBC Red Blood Cell Count 3.35 M/uL (3.86-4.86); Red Cell Distribution Width 13.4 % (12.1-15.2)
[2024-10-07 06:30] LABS: Phosphorus 2.8 mg/dL (2.5-4.9); Thyroid Stimulating Hormone 0.447 uIU/mL (0.358-3.740)
--- NOTE | 2024-10-07 08:28 | RAD REPORT ---
EXAMINATION: ONE VIEW CHEST XR CLINICAL INDICATION: penumonia TECHNIQUE: Frontal chest projection is submitted. Examination is limited by patient positioning and t echnique. COMPARISON: 10/04/2024 FINDINGS: Patchy airspace consolidation in the left lung base is present, likely pneumonia, mildly progressive since comparison study. Patchy opacity medial right lung base appears fractionally improved. The heart is upper limit of normal in size. No displaced fractures identified. Left-sided shunt catheter tubing IMPRESSION: Left lung base pneumonia appears mildly to moderately progressive since comparative study.
--- NOTE | 2024-10-07 09:53 | P.CNS ---
Date of Consult: 10/07/24 Chief Complaint: Shortness of breath History of Present Illness: Patient with PMH of atrial fibrillation, chronic, presented to the hospital with worsening SOB, getting treated for PNA, patient denies chest pain, no syncope. Allergies No Known Allergies Allergy (Verified 07/28/22 09:48) Home medications list reviewed: Yes Home Medications: Levothyroxine [Synthroid*] 0.1 mg PO DAILY 04/23/17 Multivitamin [Daily Multiple Vitamin] 1 tab PO DAILY 04/23/17 lisinopriL [Prinivil*] 2.5 mg PO DAILY 04/23/17 Simvastatin [Zocor] 40 mg PO BEDTIME 06/21/23 Polyethyl Gly 3350 [Glycolax*] 17 gm PO DAILY PRN #30 packet 06/27/23 Senosides [Senokot*] 17.2 mg PO BID #120 tab 06/27/23 - Past Medical/Surgical History Diabetic: No -: breast ca -: HTN -: hypothyroid -: hyperlipidemia -: hydrocephalus with shunt to left side -: R mastectomy with lymph node removal -: R knee sx x 2 -: appendectomy -: hysterectomy -: -: cholecystectomy Psychosocial/ Personal History: Lives at home with her - Family History Father Medical History: Heart disease Mother Medical History: Heart disease - Social History Alcohol use: No CD- Drugs: No Caffeine use: Yes Review of Systems 10-point ROS is otherwise unremarkable Physical Examination Temp Pulse Resp BP Pulse Ox 97.5 F 99 H 17 141/90 H 89 L 10/07/24 08:00 10/07/24 08:00 10/07/24 08:00 10/07/24 08:00 10/07/24 08:00 General: Alert, In no apparent distress HEENT: Atraumatic, PERRLA, Mucous membr. moist/pink, EOMI, Sclerae nonicteric Neck: Supple, 2+ carotid pulse no bruit, No LAD, Without JVD or thyroid abnormality Respiratory: Clear to auscultation bilaterally, Normal air movement Cardiovascular: Irregular heart rate/rhythm Gastrointestinal: Normal bowel sounds, No tenderness Musculoskeletal: No tenderness Integumentary: No rashes Neurological: Normal gait, Normal speech, Normal tone, Normal affect Lymphatics: No axilla or inguinal lymphadenopathy - Problems (1) Atrial fibrillation Current Visit: Yes Status: Acute Plan: Chronic in nature, tele shows HR in the 100s. increase lorpessor to 50 mg po BID Add Eliquis 2.5 mg po BID continue to monitor on tele get Echo
--- NOTE | 2024-10-07 14:56 | P.PN ---
Subjective Date of Service: 10/07/24 Chief Complaint: Shortness of breath Subjective: No chest pain. shortness of breath improving. No nausea or vomiting. No abdominal pain. No obvious bleeding. Looks comfortable in the bed. Objective: General appearance: Alert and comfortable CVS: Normal S1 and S2 Lungs: Clear to auscultation bilaterally Abdomen: Soft, bowel sounds present, no tenderness Extremities: No lower extremity edema Physical Examination - Vital Signs Temperature: 97.5 F Blood Pressure: 112/75 Pulse: 114 Respirations: 16 Pulse Ox (%): 97 - Studies Microbiology Data (last 24 hrs): 10/04/24 22:30 Clean Catch Urine Lorimor Count - Final >100,000 CFU/ML. 10/04/24 22:30 Clean Catch Urine - Final Enterococcus Faecalis Assessment And Plan - Plan 1. Pneumonia -cont ABX, WBC improving -Respiratory panel; negative -Continue with supplemental oxygen and wean off as able -Continuous pulse ox monitor 2. Acute kidney injury -Secondary to infection/dehydration -DC IVFs 3. Atrial Fibrillation -Chronic history -Currently rate not controlled, started metoprolol - not on Eliquis or rate control meds in the med list -cards recs appreciated, f/u echo 4. Hx of Hypothyroidism -Continue home Levothyroxine 5. History of Hypertension History Hyperlipidemia -started lopressor 6. CHronia anemia: monitor 7. Microscopic hematuria: Follow-up with PCP 8. Hypophosphatemia: Replaced, monitor. 9. UTI: switch abx to augmentin to tcover both UTI and PNA, culture enterococcus sens to ampicillin Plan discussed with the patient and staff, DC home soon once clinically better. Physician Review: Patient Assessed, Agree with Above Assessment and Plan
[2024-10-07] MEDS: AMOX/K CLAV 875 MG TAB PO SCH (20:34)
[2024-10-07] MEDS: APIXABAN 2.5 MG TABLET PO SCH (20:35)
[2024-10-07] MEDS: METOPROLOL TAR 50 MG TAB PO SCH (20:35)
[2024-10-08 06:55] LABS: Absolute Basophils 0.1 K/uL (0-0.5); Absolute Eosinophils 0.1 K/uL (0-0.5); Absolute Lymphocytes (CBC) 1.4 K/uL (0.7-4.9); Absolute Monocytes 1.1 K/uL (0.1-1.3); Absolute Neutrophil 6.1 K/uL (1.8-8.0); Basophils % 0.7 % (0-1.3); Eosinophils % 1.5 % (0-4.4); Hematocrit 31.5 % (36.0-45.0); Hemoglobin 10.9 g/dL (12.0-15.0); Lymphocytes % 15.9 % (15.3-44.8); MCH 31.3 pg (27.0-35.0); MCHC 34.6 g/dL (32.0-36.0); MCV 90.4 fL (80-100); MPV 8.5 fL (7.6-11.3); Monocytes % 12.9 % (3.3-12.3); Platelets 336 thou/uL (152-406); RBC Red Blood Cell Count 3.48 M/uL (3.86-4.86); Red Cell Distribution Width 13.2 % (12.1-15.2)
[2024-10-08 07:09] LABS: Anion Gap 8.7 mEq/L (5.0-15.0); Potassium 3.7 mEq/L (3.5-5.1)
[2024-10-08] MEDS: POTASSIUM CL SA 10 MEQ TAB PO ONE (07:28)
--- NOTE | 2024-10-08 12:14 | EKG ---
Test Date: 2024-10-05 Test Time: 06:25:48 Life Skills Instructor: AF MEASUREMENT RESULTS: Intervals: Rate: 118 FL: QRSD: 88 QT: 324 QTc: 454 [place]: P: FL: QRS: 90 T: 73 INTERPRETIVE STATEMENTS: Atrial fibrillation with rapid ventricular response Rightward axis Abnormal ECG Compared to ECG 10/04/2024 13:13:54 No significant changes Electronically Signed On 10-08-24 12:07:24 SHUTDOWN COORDINATOR by Romeo Brewer
--- NOTE | 2024-10-08 12:16 | EKG ---
Test Date: 2024-10-04 Test Time: 13:13:54 [employer] Analyst: REHANA MEASUREMENT RESULTS: Intervals: Rate: 112 SC: QRSD: 84 QT: 332 QTc: 453 [place]: P: SC: QRS: 91 T: 52 INTERPRETIVE STATEMENTS: Atrial fibrillation with rapid ventricular response Rightward axis Abnormal ECG Compared to ECG 06/20/2023 11:06:52 Right-axis deviation now present Sinus rhythm no longer present Left-axis deviation no longer present Myocardial infarct finding no longer present Electronically Signed On 10-08-24 12:09:13 BRICK PICKER by Romeo Brewer
--- NOTE | 2024-10-08 16:26 | P.PN ---
Subjective Date of Service: 10/08/24 Chief Complaint: Shortness of breath Subjective: No chest pain. shortness of breath improving. No nausea or vomiting. No abdominal pain. No obvious bleeding. Looks comfortable in the bed. Objective: General appearance: Alert and comfortable CVS: Normal S1 and S2 Lungs: Clear to auscultation bilaterally Abdomen: Soft, bowel sounds present, no tenderness Extremities: No lower extremity edema Physical Examination - Vital Signs Temperature: 98.1 F Blood Pressure: 124/79 Pulse: 100 Respirations: 18 Pulse Ox (%): 94 Assessment And Plan - Plan 1. Pneumonia -cont ABX, WBC improving -Respiratory panel; negative -Continue with supplemental oxygen and wean off as able -Continuous pulse ox monitor -will get f/u CXR due to O2 requirements 2. Acute kidney injury -Secondary to infection/dehydration -DC IVFs 3. Atrial Fibrillation -Chronic history -Currently rate not controlled, started metoprolol and eliquis - not on Eliquis or rate control meds in the med list -cards recs appreciated, f/u echo 4. Hx of Hypothyroidism -Continue home Levothyroxine 5. History of Hypertension History Hyperlipidemia -started lopressor 6. CHronia anemia: monitor 7. Hypophosphatemia: Replaced, monitor. 8. UTI: switched abx to augmentin to cover both UTI and PNA, culture enterococcus sens to ampicillin - f/u UA due to microscopic hematuria Plan discussed with the patient and staff, d/w family at bedside, DC home soon once clinically better. Physician Review: Patient Assessed, Agree with Above Assessment and Plan
[2024-10-09 04:51] LABS: Absolute Basophils 0.1 K/uL (0-0.5); Absolute Eosinophils 0.2 K/uL (0-0.5); Absolute Lymphocytes (CBC) 1.3 K/uL (0.7-4.9); Absolute Monocytes 1.2 K/uL (0.1-1.3); Absolute Neutrophil 5.6 K/uL (1.8-8.0); Basophils % 0.8 % (0-1.3); Eosinophils % 1.8 % (0-4.4); Hematocrit 31.7 % (36.0-45.0); Hemoglobin 11.1 g/dL (12.0-15.0); Lymphocytes % 16.1 % (15.3-44.8); MCH 31.7 pg (27.0-35.0); MCHC 35.1 g/dL (32.0-36.0); MCV 90.4 fL (80-100); MPV 8.5 fL (7.6-11.3); Monocytes % 14.7 % (3.3-12.3); Neutrophils % 66.6 % (41.7-73.7); Platelets 335 thou/uL (152-406); RBC Red Blood Cell Count 3.51 M/uL (3.86-4.86)
--- NOTE | 2024-10-09 07:52 | RAD REPORT ---
EXAMINATION: TWO VIEW CHEST XR CLINICAL INDICATION: f/u pnuemonia, ok to get in the morning TECHNIQUE: 2 views of the chest was performed. COMPARISON: 10/07/2024 FINDINGS: Large area of airspace consolidation is seen in the left inferior hemithorax likely related to infilt rate/pneumonia with pleural fluid. Appears mildly worse since comparative study. The heart is mildly enlarged in size. No displaced fractures evident. Left-sided shunt tubing. IMPRESSION: Mild to moderate worsening in left-sided pneumonia since comparative study.
--- NOTE | 2024-10-09 10:59 | RAD REPORT ---
EXAMINATION: Chest Lateral Decubitus CLINICAL INDICATION: Left effusion ? TECHNIQUE: 2 view decubitus radiographs of the chest were performed. COMPARISON: 10/09/2024 FINDINGS: Decubitus views of the chest demonstrate no significant right-sided pleural fluid. Left-sided view is quite limited and definitive pleural fluid is not identified. CT chest recommended for better assessment.
--- NOTE | 2024-10-09 12:28 | ECHO ---
HEIGHT: 5 ft 9 in WEIGHT: 167 lb 0 oz DATE OF STUDY: 10/08/[address]: Renny Nichols 2-DIMENSIONAL: YES M.MODE: YES DOPPLER: YES COLOR FLOW: YES TDS: PORTABLE: YES DEFINITY: BUBBLE STUDY: DIAGNOSIS: ATRIAL FIBRILLATION CARDIAC HISTORY: CATHERIZATION: NO SURGERY: NO PROSTHETIC VALVE: NO PACEMAKER: NO MEASUREMENTS (cm) DIASTOLIC (NORMALS) SYSTOLIC (NORMALS) IVSd 1.1 (0.6-1.2) LA Diam 3.2 (1.9-4.0) LVEF 60-65% LVIDd 3.3 (3.5-5.7) LVIDs 2.0 (2.0-3.5) %FS 38% LVPWd 1.0 (0.6-1.2) Ao Diam 2.4 (2.0-3.7) 2 DIMENSIONAL ASSESSMENT: RIGHT ATRIUM: NORMAL LEFT ATRIUM: MILDLY DILATED RIGHT VENTRICLE: NORMAL LEFT VENTRICLE: NORMAL TRICUSPID VALVE: TRACE TRICUSPID REGURGITATION MITRAL VALVE: NORMAL PULMONIC VALVE: NORMAL AORTIC VALVE: NORMAL PERICARDIAL EFFUSION: NONE AORTIC ROOT: NORMAL LEFT VENTRICULAR WALL MOTION: NORMAL DOPPLER/COLOR FLOW: NORMAL COMMENTS: 1. NORMAL LEFT VENTRICULAR SYSTOLIC FUNCTION, EJECTION FRACTION 60-65%, NORMAL WALL MOTION 2. NORMAL FILLING PRESSURE (RIGHT ATRIAL PRESSURE 0-5 mmHg) TECHNOLOGIST: EDDIE ROMERO
--- NOTE | 2024-10-09 15:10 | P.PN ---
Subjective Date of Service: 10/09/24 Chief Complaint: Shortness of breath Subjective: No chest pain. shortness of breath improving. No nausea or vomiting. No abdominal pain. No obvious bleeding. Looks comfortable in the bed. Objective: General appearance: Alert and comfortable CVS: Normal S1 and S2 Lungs: Clear to auscultation bilaterally Abdomen: Soft, bowel sounds present, no tenderness Extremities: No lower extremity edema Physical Examination - Vital Signs Temperature: 98.1 F Blood Pressure: 144/83 Pulse: 94 Respirations: 18 Pulse Ox (%): 92 Assessment And Plan - Plan 1. Pneumonia -cont ABX, WBC improving but still hypoxic and CXR getting worse -Respiratory panel; negative -Continue with supplemental oxygen and wean off as able -will get CT chest and pulm consult -will try a dose of lasix 2. Acute kidney injury -Secondary to infection/dehydration -DC IVFs 3. Atrial Fibrillation -Chronic history -Currently rate not controlled, started metoprolol and eliquis - not on Eliquis or rate control meds in the med list -cards recs appreciated -normal EF on echo 4. Hx of Hypothyroidism -Continue home Levothyroxine 5. History of Hypertension History Hyperlipidemia -started lopressor 6. CHronia anemia: monitor 7. Hypophosphatemia: Replaced, monitor. 8. UTI: continue augmentin to cover both UTI and PNA, culture enterococcus sens to ampicillin - f/u UA due to microscopic hematuria Plan discussed with the patient and staff, d/w family at bedside, DC home soon once clinically better. 79 yo Patient admitted with pneumonia, started on antibiotics, WBC getting better but still hypoxic, chest x-ray getting worse, will get a CT chest and pulmonary consult. Atrial fibrillation, not on medications, started on Eliquis and beta-momo, heart rate improving, cardiology was following as well. Physician Review: Patient Assessed, Agree with Above Assessment and Plan
[2024-10-09] MEDS: FUROSEMIDE 40 MG/4 ML VIAL IV SCH (16:00)
--- NOTE | 2024-10-09 16:02 | RAD REPORT ---
EXAMINATION: CT CHEST WITHOUT CONTRAST CLINICAL INDICATION: Female, 79 years old. f/u pneumonia and pleural effusion TECHNIQUE: Routine CT scan of the chest without intravenous contrast. One or more of the following do se reduction techniques were used: Automated exposure control, adjustment of the mA and/or kV according to patient size, and/or iterative reconstruction. Unless otherwise specified, incidental fi ndings do not require dedicated imaging follow-up. [id number]. COMPARISON: 10/09/2024 FINDINGS: LOWER NECK: Visualized thyroid gland and soft tissues are normal. LUNGS AND AIRWAYS: Left lower lobe consolidation.Motion artifact limits evaluation for pulmonary nodu le detection. Mild nodularity and marked nodularity scattered throughout both lungs. Debris/secretions in the left mainstem bronchus and lobar branches. PLEURA: Small left pleural effusion. MEDIASTINUM AND LYMPH NODES: No mediastinal mass or fluid collection. Normal size mediastinal, hilar, and axillary lymph nodes. THORACIC AORTA: No thoracic aortic aneurysm. Atherosclerotic changes are present. PULMONARY ARTERIES: Caliber is within normal limits. HEART: Normal heart size. Moderate coronary artery calcifications.No significant pericardial effusion . OSSEOUS STRUCTURES AND CHEST WALL: Bridging osteophytes in the spine. UPPER ABDOMEN: No acute abnormalities.Cholecystectomy IMPRESSION: Consolidation left lower lobe with other areas of mild scattered nodularity could be secondary to pne umonia or pneumonitis, possibly aspiration as there is debris/secretions in the left mainstem and lobar bronchi.
[2024-10-09 16:51] VITALS: BMI 28.6
[2024-10-10 05:55] LABS: Absolute Basophils 0.1 K/uL (0-0.5); Absolute Eosinophils 0.2 K/uL (0-0.5); Absolute Lymphocytes (CBC) 1.7 K/uL (0.7-4.9); Absolute Monocytes 1.2 K/uL (0.1-1.3); Absolute Neutrophil 5.2 K/uL (1.8-8.0); Basophils % 0.9 % (0-1.3); Hematocrit 34.2 % (36.0-45.0); Hemoglobin 11.7 g/dL (12.0-15.0); Lymphocytes % 20.9 % (15.3-44.8); MCH 31.4 pg (27.0-35.0); MCHC 34.3 g/dL (32.0-36.0); MCV 91.7 fL (80-100); MPV 8.4 fL (7.6-11.3); Monocytes % 14.2 % (3.3-12.3); Nucleated Red Blood Cells % 0.1 % (0-0); Platelets 400 thou/uL (152-406); RBC Red Blood Cell Count 3.74 M/uL (3.86-4.86); Red Cell Distribution Width 13.3 % (12.1-15.2)
[2024-10-10 06:08] LABS: Anion Gap 9.9 mEq/L (5.0-15.0); Potassium 3.9 mEq/L (3.5-5.1)
--- NOTE | 2024-10-10 07:56 | P.PN ---
Subjective Date of Service: 10/10/24 Chief Complaint: Shortness of breath Subjective: Improving (Patient is improving according to the nurse patient is unresponsive in deep sleep) Review of Systems is unable to be obtained Physical Examination - Vital Signs Temperature: 97.5 F Blood Pressure: 120/75 Pulse: 93 Respirations: 18 Pulse Ox (%): 95 - Physical Exam General: Unresponsive Respiratory: Clear to auscultation bilaterally, Diminished Cardiovascular: No edema, Regular rate/rhythm, Normal S1 S2 - Studies Microbiology Data (last 24 hrs): 10/04/24 13:10 Blood - Blood Aerobic Blood Culture - Final No growth in 5 days. 10/04/24 13:10 Blood - Blood Anaerobic Blood Culture - Final No growth in 5 days. 10/04/24 12:55 Blood - Blood Aerobic Blood Culture - Final No growth in 5 days. 10/04/24 12:55 Blood - Blood Anaerobic Blood Culture - Final No growth in 5 days. Assessment And Plan - Current Problems (Diagnosis) (1) Pneumonia Current Visit: Yes Status: Acute Plan: Patient has a left lower lobe pneumonia with a small pleural effusion plan to ambulate discharge planning continue with amoxicillin and doxycycline white count is normalized urine culture shows Enterococcus that is sensitive to amoxicillin patient is on Augmentin physical therapy discharge planning small pleural effusion thoracentesis would not be indicated Qualifiers: Pneumonia type: due to influenza A virus Qualified Code(s): J10.00 - Influenza due to other identified influenza virus with unspecified type of pneumonia Physician Review: Patient Assessed, Agree with Above Assessment and Plan
--- NOTE | 2024-10-10 18:52 | P.PN ---
Subjective Date of Service: 10/10/24 Chief Complaint: Shortness of breath Hypoxic with ambulation, plan for home O2, ambulated with physical therapy today Review of Systems 10-point ROS is otherwise unremarkable Physical Examination - Vital Signs Temperature: 97.9 F Blood Pressure: 112/71 Pulse: 94 Respirations: 17 Pulse Ox (%): 97 - Physical Exam General: Alert, In no apparent distress, Oriented x3 HEENT: Atraumatic, Normocephalic, PERRLA Neck: Supple, 2+ carotid pulse no bruit Respiratory: Normal air movement, Other (Hypoxic with ambulation) Cardiovascular: Normal pulses, Regular rate/rhythm Capillary refill: <2 Seconds Gastrointestinal: Normal bowel sounds, Soft and benign Musculoskeletal: No swelling, No contractures Integumentary: No breakdown, No significant lesion Neurological: Normal speech, Normal strength at 5/5 x4 extr, Normal tone - Studies Microbiology Data (last 24 hrs): 10/04/24 13:10 Blood - Blood Aerobic Blood Culture - Final No growth in 5 days. 10/04/24 13:10 Blood - Blood Anaerobic Blood Culture - Final No growth in 5 days. 10/04/24 12:55 Blood - Blood Aerobic Blood Culture - Final No growth in 5 days. 10/04/24 12:55 Blood - Blood Anaerobic Blood Culture - Final No growth in 5 days. Assessment And Plan - Plan - Plan 1. Acute hypoxic respiratory failure secondary to pneumonia -cont ABX, WBC improving but still hypoxic and CXR getting worse -Respiratory panel; negative -Continue with supplemental oxygen and wean off as able -will get CT chest and pulm consult -will try a dose of lasix 2. Acute hypoxic respiratory failure secondary to decompensated heart failure secondary to Atrial Fibrillation -Chronic history -Currently rate not controlled, started metoprolol and eliquis - not on Eliquis or rate control meds in the med list -cards recs appreciated - EF 60 to 65% on echo, left atrium dilated, tricuspid regurgitation, 3. Acute kidney injury -Secondary to infection/dehydration -DC IVF 4. Hx of Hypothyroidism -Continue home Levothyroxine 5. History of Hypertension History Hyperlipidemia -started lopressor 6. CHronia anemia: monitor 7. Hypophosphatemia: Replaced, monitor. 8. UTI: continue augmentin to cover both UTI and PNA, culture enterococcus sens to ampicillin - f/u UA due to microscopic hematuria Discharge Plan: Home - Code Status/Comfort Care Code Status: Do Not Attempt Resuscitat Critical Care: No Time Spent Managing PTS Care (In Minutes): 35
[2024-10-10] MEDS: MELATONIN 5 MG TABLET PO PRN (20:40)
[2024-10-11 05:45] LABS: Absolute Basophils 0.1 K/uL (0-0.5); Absolute Eosinophils 0.1 K/uL (0-0.5); Absolute Lymphocytes (CBC) 1.5 K/uL (0.7-4.9); Absolute Monocytes 1.3 K/uL (0.1-1.3); Absolute Neutrophil 6.3 K/uL (1.8-8.0); Eosinophils % 1.6 % (0-4.4); Hematocrit 34.1 % (36.0-45.0); Hemoglobin 11.7 g/dL (12.0-15.0); Lymphocytes % 16.5 % (15.3-44.8); MCH 31.1 pg (27.0-35.0); MCHC 34.2 g/dL (32.0-36.0); MPV 8.7 fL (7.6-11.3); Monocytes % 13.8 % (3.3-12.3); Neutrophils % 67.1 % (41.7-73.7); Nucleated Red Blood Cells % 0.1 % (0-0); Platelets 327 thou/uL (152-406); RBC Red Blood Cell Count 3.74 M/uL (3.86-4.86); Red Cell Distribution Width 13.3 % (12.1-15.2)
[2024-10-11 06:01] LABS: Anion Gap 9.1 mEq/L (5.0-15.0); Potassium 4.1 mEq/L (3.5-5.1)
--- NOTE | 2024-10-11 11:16 | P.DS ---
Admission Date: 10/05/24 Discharge Date: 10/11/24 Disposition: ROUTINE DISCHARGE Discharge Condition: FAIR Reason for Admission: Shortness of breath Brief History of Present Illness: 79-year-old female with past medical history of hypothyroidism, breast cancer , cataract, atrial fibrillation, hypertension, and high cholesterol who reports to the ED with complaints of shortness of breath. Patient was recently diagnosed with flu a few weeks ago and has progressively gotten worse since diagnosis. Reports poor p.o. intake and feeling lethargic over the last week. ED workup showed chest x-ray with increased opacities in lung bases left greater than right with possible pneumonia/pneumonitis, WBCs 14.2, neutrophils 11.5, lactate 1.5, BNP 6546, creatinine 1.41 and patient requiring supplemental oxygen. Patient is now being admitted for pneumonia and hypoxia - Physical Exam General: Alert, In no apparent distress, Oriented x3, Other (hard of hearing. Bilat hearing aids ) Neck: Supple, 2+ carotid pulse no bruit, No LAD, Without JVD or thyroid abnormality Respiratory: Diminished, Crackles/rales Cardiovascular: No edema, Irregular heart rate/rhythm (A-fib rate controlled ) Capillary refill: <2 Seconds Gastrointestinal: Normal bowel sounds, No tenderness Musculoskeletal: No tenderness Integumentary: No rashes Neurological: Normal speech, Normal strength at 5/5 x4 extr, Normal affect External genitalia: Deferred Hospital Course: 79-year-old female with past medical history of hypothyroidism, breast cancer , cataract, atrial fibrillation, hypertension, and high cholesterol who reports to the ED with complaints of shortness of breath. Patient was recently diagnosed with flu a few weeks ago and has progressively gotten worse since diagnosis. Reports poor p.o. intake and feeling lethargic over the last week. ED workup showed chest x-ray with increased opacities in lung bases left greater than right with possible pneumonia/pneumonitis, WBCs 14.2, neutrophils 11.5, lactate 1.5, BNP 6546, creatinine 1.41 and patient requiring supplemental oxygen. Patient is now being admitted for pneumonia and hypoxia, she was improved on IV antibiotics, oxygen, pulmonary was consulted. Stable to discharge home with home oxygen follow-up with pulmonary after discharge Discharged home on Augmentin 1 p.o. twice daily for 7 days #14 Inhalers albuterol, for shortness of breath Midodrine for as needed hypotension systolic less than 100 12.5 metoprolol hold if systolic blood pressures less than 110 Eliquis 2.5 1 p.o. twice daily for 30 days Nebulizer and supplies ordered Home O2 ordered for patient Assessment Acute hypoxic respiratory failure secondary to pneumonia Acute hypoxic respiratory failure secondary to decompensated heart failure secondary to atrial fibrillation, resume Eliquis after discharge Acute kidney injury, likely secondary to dehydration, stable, follow-up kidney function after discharge Hypothyroidism resume home meds after discharge Continue home medicines as previously prescribed GOAL: Clear understanding of disease process INSTRUCTIONS: Physician Discharge Instructions: -Follow-up with PCP in 1 to 2 weeks -Follow-up with cardiology after discharge for atrial fibrillation -Follow up with pulmonary -Please call if any questions regarding hospital stay -Please call nursing station at [phone] if any nursing or medication questions -Return to the emergency room if symptoms worsen Diet: ADA, low sodium Activity: Fall precautions Vital Signs/Physical Exam: Temp Pulse Resp BP Pulse Ox 97.5 F 91 H 17 99/70 95 10/11/24 08:00 10/11/24 08:00 10/11/24 04:00 10/11/24 08:00 10/11/24 08:00 Laboratory Data at Discharge: WBC 9.40 thou/uL (4.3-10.9) 10/11/24 05:14 Hgb 11.7 g/dL (12.0-15.0) L 10/11/24 05:14 Hct 34.1 % (36.0-45.0) L 10/11/24 05:14 Plt Count 327 thou/uL (152-406) 10/11/24 05:14 PT 16.9 SECONDS (10.0-13.0) H 10/05/24 07:32 INR 1.51 10/05/24 07:32 Sodium 140 mEq/L (136-145) 10/11/24 05:14 Potassium 4.1 mEq/L (3.5-5.1) 10/11/24 05:14 BUN 36 mg/dL (7-18) H 10/11/24 05:14 Creatinine 1.13 mg/dL (0.55-1.02) H 10/11/24 05:14 Glucose 98 mg/dL (74-106) 10/11/24 05:14 Phosphorus 2.8 mg/dL (2.5-4.9) 10/07/24 05:49 Magnesium 2.0 mg/dL (1.6-2.4) 10/07/24 05:49 Total Bilirubin 0.8 mg/dL (0.2-1.0) 10/04/24 13:25 AST 11 U/L (15-37) L 10/04/24 13:25 ALT < 14 U/L (13-56) 10/04/24 13:25 Alkaline Phosphatase 99 U/L (45-117) 10/04/24 13:25 Home Medications: Levothyroxine [Synthroid*] 0.1 mg PO DAILY 04/23/17 Multivitamin [Daily Multiple Vitamin] 1 tab PO DAILY 04/23/17 lisinopriL [Prinivil*] 2.5 mg PO DAILY 04/23/17 Simvastatin [Zocor] 40 mg PO BEDTIME 06/21/23 Polyethyl Gly 3350 [Glycolax*] 17 gm PO DAILY PRN #30 packet 06/27/23 Senosides [Senokot*] 17.2 mg PO BID #120 tab 06/27/23 Amox/Clavulanate [Augmentin 875-125 Tab*] 875 mg PO BID 7 Days #14 tab 10/11/24 Apixaban [Eliquis] 2.5 mg PO BID 30 Days #60 tablet 10/11/24 Levalbuterol [Xopenex] 0.63 mg IH TID PRN 30 Days #1 box 10/11/24 Metoprolol Tartrate [Lopressor*] 0.5 mg PO BID 30 Days #60 tab 10/11/24 Midodrine HCl [Proamatine*] 5 mg FT TID PRN 30 Days #30 tab 10/11/24 Nebulizer and Compressor [[employer] Nebulizer] 1 each MC DAILY 30 Days #1 ea 10/11/24 New Medications: Amox/Clavulanate [Augmentin 875-125 Tab*] 875 mg PO BID 7 Days #14 tab Nebulizer and Compressor [[employer] Nebulizer] 1 each MC DAILY 30 Days #1 ea Apixaban [Eliquis] 2.5 mg PO BID 30 Days #60 tablet Metoprolol Tartrate [Lopressor*] 0.5 mg PO BID 30 Days #60 tab Midodrine HCl [Proamatine*] 5 mg FT TID PRN 30 Days #30 tab PRN Reason: hypotension Levalbuterol [Xopenex] 0.63 mg IH TID PRN 30 Days #1 box PRN Reason: Shortness Of Breath Physician Discharge Instructions: 79-year-old female with past medical history of hypothyroidism, breast cancer , cataract, atrial fibrillation, hypertension, and high cholesterol who reports to the ED with complaints of shortness of breath. Patient was recently diagnosed with flu a few weeks ago and has progressively gotten worse since diagnosis. Reports poor p.o. intake and feeling lethargic over the last week. ED workup showed chest x-ray with increased opacities in lung bases left greater than right with possible pneumonia/pneumonitis, WBCs 14.2, neutrophils 11.5, lactate 1.5, BNP 6546, creatinine 1.41 and patient requiring supplemental oxygen. Patient is now being admitted for pneumonia and hypoxia, she was improved on IV antibiotics, oxygen, pulmonary was consulted. Stable to discharge home with home oxygen follow-up with pulmonary after discharge Discharged home on Augmentin 1 p.o. twice daily for 7 days #14 Inhalers albuterol, for shortness of breath Midodrine for as needed hypotension systolic less than 100 12.5 of metoprolol hold if systolic blood pressures less than 110 Eliquis 2.5 1 p.o. twice daily for 30 days Nebulizer compression ordered Assessment Acute hypoxic respiratory failure secondary to pneumonia Acute hypoxic respiratory failure secondary to decompensated heart failure secondary to atrial fibrillation, resume Eliquis after discharge Acute kidney injury, likely secondary to dehydration, stable, follow-up kidney function after discharge Hypothyroidism resume home meds after discharge Hypertension Continue home medicines as previously prescribed GOAL: Clear understanding of disease process INSTRUCTIONS: Physician Discharge Instructions: -Follow-up with PCP in 1 to 2 weeks -Follow-up with cardiology after discharge for atrial fibrillation -Follow up with pulmonary -Please call if any questions regarding hospital stay -Please call nursing station at [phone] if any nursing or medication questions -Return to the emergency room if symptoms worsen Diet: ADA, low sodium Activity: Fall precautions Followup: Alec Hallman MD [ACTIVE - CAN ADMIT] - 1-2 Weeks NONE,NONE [Primary Care Provider] - Time spent managing pt's care (in minutes): 45
[2024-10-11 13:19] VITALS: O2SAT 96
[2024-10-11 17:28] VITALS: BP 114/63; TEMP 98.1
== END 2024-10-11 17:50 | disposition home or self-care (01) | DRG 193 ==
LOC: ER 11:38 → ERHOLD 15:00 → 4TH 10-05 12:27 → OBSVTOIN 10-05 16:36
PROVIDERS: ADMIT Internal Medicine; ATTEND Internal Medicine
DX: J10.00 Influenza due to other identified influenza virus with unspecified type of pneumonia (principal); J96.01 Acute respiratory failure with hypoxia; N17.9 Acute kidney failure, unspecified; N39.0 Urinary tract infection, site not specified; I11.0 Hypertensive heart disease with heart failure; I50.9 Heart failure, unspecified; I48.91 Unspecified atrial fibrillation; E86.0 Dehydration; H91.93 Unspecified hearing loss, bilateral; E03.9 Hypothyroidism, unspecified; E83.39 Other disorders of phosphorus metabolism; E78.00 Pure hypercholesterolemia, unspecified; R31.29 Other microscopic hematuria; Z66 Do not resuscitate; Z97.4 Presence of external hearing-aid; Z85.3 Personal history of malignant neoplasm of breast; Z11.52 Encounter for screening for COVID-19; Z79.01 Long term (current) use of anticoagulants; Z90.11 Acquired absence of right breast and nipple; Z90.49 Acquired absence of other specified parts of digestive tract; Z79.890 Hormone replacement therapy; Z79.899 Other long term (current) drug therapy; Z90.710 Acquired absence of both cervix and uterus
CPT/HCPCS: 36415; 71045; 71046; 71250; 80048; 80076; 81001; 82947; 83605; 83735; 83880; 84100; 84443; 84484; 85025; 85610; 87040; 87077; 87086; 87088; 87186; 87428; 93005; 93306; 94760; 96365; 96366; 97116; 97161; 97530; 99284; G0378; J0690; J0696; J1940; J2470; J7030